=== PATIENT | male | born 1940 | race Caucasian/White ===

== ENCOUNTER 2021-04-23 18:20 | Inpatient (IN) ==
[2021-04-23 18:25] VITALS: BMI 31.8
[2021-04-23] MEDS ORDERED: NS 500 ML IV 500 ML IV ONE ×2 (21:03→21:27)
[2021-04-23 21:22] LABS: BILIRUBIN,URINE NEGATIVE (NEGATIVE); BLOOD/HEMOGLOBIN,URINE 4+ (NEGATIVE); GLUCOSE, URINE NEGATIVE (NEGATIVE); KETONES,URINE 2+ (NEGATIVE); LEUKOCYTE ESTERASE ,URINE 1+ (NEGATIVE); NITRITES,URINE NEGATIVE (NEGATIVE); PROTEIN,URINE 4+ (NEGATIVE); UROBILINOGEN,URINE NORMAL (NORMAL)
--- NOTE | 2021-04-23 21:24 | RAD ---
HISTORYC/O GENERALIZED WEAKNESS IN BILATERAL LEGS X1 WEEK. PT STATES WEAKNESS BECAME WORSE OVER THE LAST PAST TWO DAYS. PT A&O X3, PT ABLE TO SPEAK IN COMPLETE SENTENCES @ THIS TIME.STUDYCHEST, 1 VIEWCOMPARISONNone availableTECHNIQUEChest radiographic imaging, AP portable projection, 1 imageFINDINGSNo cardiomegaly.Airspace disease in the mid to lower right lung field and at the left lung base.No pleural effusion.No pneumothorax.No acute osseous abnormality.IMPRESSIONAirspace disease in the mid to lower right lung field and at the left lung base. Findings could represent in an atypical/viral infectious process or multifocal pneumonia.Electronically signed by: Maikel Wilson (Apr 23, 2021 21:21:09)
[2021-04-23 21:26] LABS: APPEARANCE,URINE CLEAR (CLEAR); COLOR,URINE YELLOW (YELLOW)
[2021-04-23 21:27] LABS: BACTERIA,URINE TRACE /HPF (NEGATIVE); SQUAMOUS EPITHELIAL CELL,UR RARE /HPF (NEGATIVE)
[2021-04-23 21:45] LABS: BASOPHILS % (AUTO) 0.1 % (0.2-1.0); HEMOGLOBIN 13.4 g/dL (13.5-18.0); LYMPHOCYTES # (AUTO) 0.9 X10^3/uL (1.3-2.9); MEAN CORPUSCULAR HEMOGLOBIN 30.9 pg (27.0-34.0); MEAN CORPUSCULAR HGB CONC 34.4 g/dL (33.0-35.0); MEAN CORPUSCULAR VOLUME 89.9 fL (80.0-100.0); MEAN PLATELET VOLUME 7.6 fL (7.4-11.0); MONOCYTES # (AUTO) 0.9 x10^3/uL (0.3-0.8); MONOCYTES % (AUTO) 10.9 % (0.0-13.0); NEUTROPHILS # (AUTO) 6.8 x10^3/uL (2.2-4.8); PLATELET COUNT 146 X10^3/uL (150.0-450.0); RED BLOOD COUNT 4.34 X10^6/uL (4.7-6.0); RED CELL DISTRIBUTION WIDTH 14.7 % (11.6-16.5); WHITE BLOOD COUNT 8.6 X10^3/uL (3.6-10.0)
[2021-04-23 22:04] LABS: ALANINE AMINOTRANSFERASE 35 Units/L (12-78); ALBUMIN 3.4 g/dL (3.4-5.0); ALKALINE PHOSPHATASE 67 Units/L (46-116); ASPARTATE AMINO TRANSFERASE 35 Units/L (15-37); BLOOD UREA NITROGEN 18 mg/dL (7-18); CALCIUM 8.7 mg/dL (8.5-10.1); CARBON DIOXIDE 31.3 mmol/L (21-32); CHLORIDE 95 mmol/L (98-107); CKMB % 0.5 % (<4); COR NA(FOR HYPERGLY) 136 mmol/L (136-145); CREATINE KINASE 414 Units/L (39-308); CREATININE 0.98 mg/dL (0.70-1.30); SODIUM 136 mmol/L (136-145); TOTAL PROTEIN 7.8 g/dL (6.4-8.2); eGFR NON BLACK RACES > 60 (>60)
[2021-04-23] MEDS ORDERED: ROCEPHIN VIAL 1 GRAM 1 G in NS 100 ML IV + SPIKE MINIBAG* 100 ML IV ONE (22:31)
[2021-04-23] MEDS ORDERED: ROCEPHIN 1 GRAM IV PREMIX 0 G/0 ML IV.SOLN. IV ONE (22:33)
[2021-04-23] MEDS ORDERED: ROCEPHIN VIAL 1 GRAM ONE (22:34)
[2021-04-23] MEDS ORDERED: NS 100 ML IV + SPIKE MINIBAG* 100 ML IV ONE (22:35)
--- NOTE | 2021-04-23 22:55 | DR.DIZZY ---
HPI Time seen Time Seen by Provider: 04/23/21 21:02 PCP Primary Care Physician: NFD Complaint Chief Complaint Doctor Comments: 81 y/o male presents feeling ill the past several days, was having generalized leg weakness. +woresened yesterday. Having generalized aches, weakness. Running a fever, with chills. Having congestion. Has a chronic cough, now coughing slightly worse than usual. No shortness of breath. Denies nausea, vomiting, diarrhea. Having darker urine. Chief Complaint:: PT C/O GENERALIZED WEAKNESS IN BILATERAL LEGS X1 WEEK. PT STATES WEAKNESS BECAME WORSE OVER THE LAST PAST TWO DAYS. PT A&O X3, PT ABLE TO SPEAK IN COMPLETE SENTENCES @ THIS TIME. COVID-19 Coronavirus risk:travel/contact w/high risk person: No Has patient experienced Coronavirus symptoms: No Coronavirus symptoms experienced: Fever and Coughing Nurses Notes Reviewed Nurses Notes Review: Yes Source History Provided: Patient and Significant Other Mode of Arrival Mode of Arrival: Wheelchair Timing Onset of Chief Complaint: 04/16/21 Context Stroke Symptoms: None PMH PMH Past Medical History: Yes Past Medical History: COPD Past Surgical History: Yes Surgical History: Other Family History History of Family Medical Conditions: Yes Family Medical History: Diabetes Mellitus Social History Do you use any recreational Drugs:: No Travel Risk Coronavirus risk:travel/contact w/high risk person: No Has patient experienced Coronavirus symptoms: No Infectious screening Have you traveled outside the country in the last 6 months?: No Isolation: Standard ROS Review of Systems Constitutional: Chills, Fever, Malaise and Weakness Eyes: No Symptoms Reported ENTM: Nose Congestion Respiratoy: Non-Productive Cough Cardiovascular: No Symptoms Reported Gastrointestinal/Abdominal: No Symptoms Reported Genitourinary: Other (darker urine); negative Dysuria and Frequency Neurological: Weakness Musculoskeletal: Muscle Pain Integumentary: No Symptoms Reported Hematologic/Lymphatic: No Symptoms Reported Psychiatric: No Symptoms Reported All Other Systems: Reviewed and Negative PE Vital Signs Vitals: Temperature 100.7 F Pulse Rate [Apical] 74 Pulse Rate 75 Respiratory Rate 20 Blood Pressure [Left Arm] 143/68 Blood Pressure 143/68 O2 Sat by Pulse Oximetry 97 General Limitations: No Limitations General Appearance: Alert, In No Apparent Distress and Other (appears weak) Head Head Exam: Normal Inspection Eyes Eye exam: Normal Appearance, PERRL and EOMI ENT ENT Exam: Normal Exam and Mucous Membranes Moist Neck Neck Exam: Normal Inspection Chest Chest Inspection: Normal Inspection Respiratory Respiratory Exam: Bilateral: Rales and Bilateral: Rhonchi Cardiovascular Cardiovascular Exam: Regular Rate, Normal Rhythm and Normal Heart Sounds Abdominal Exam Abdominal Exam: Normal Inspection, Normal Bowel Sounds and Soft; negative Tenderness Extremeties Extremities Exam: Normal Inspection and Full ROM; negative Tenderness Back Back Exam: Normal Inspection Neurologic Neurological Exam: Alert, Oriented X3 and CN II-XII Intact; negative Motor Sensory Deficit Psychiatric Psychiatric Exam: Normal Affect Skin Skin Exam: Warm and Dry MDM Differential Diagnosis Differential Diagnosis: Dehydration and Electrolyte disorder Differential Diagnosis Comment: Pneumonia, covid, flu COURSE Treatment Treatment: 81 y/o male ill past week with weakness, worsened yesterday with URI symptoms. Covid + here. CXR with bilateral infiltrate, c/w covid infection, but a little more consolidated on the R side. Labs over all acceptable. Does have ketones in the urine c/w dehydration. Given IV fluids. Attempted to give IV rocephin for antibiotic coverage (has been ill past week, could be developing secondary bacterial infection on top of Covid). Pt declined antibiotic, wants treatment with Ivermectin. Pt is unvaccinated. Presented pt to covering hospitalist, Dr Ortega. Accepts the admission. ROR Labs Reviewed Laboratory Results Reviewed?: Yes Result Diagrams: 04/23/21 21:22 04/23/21 21: Laboratory: WBC 8.6 X10^3/uL (3.6-10.0) 04/23/21 21: RBC 4.34 X10^6/uL (4.7-6.0) L 04/23/21 21: Hgb 13.4 g/dL (13.5-18.0) L 04/23/21 21:22 Hct 39.0 % (42.0-54.0) L 04/23/21 21: MCV 89.9 fL (80.0-100.0) 04/23/21 21: MCH 30.9 pg (27.0-34.0) 04/23/21 21: MCHC 34.4 g/dL (33.0-35.0) 04/23/21 21: RDW 14.7 % (11.6-16.5) 04/23/21 21: Plt Count 146 X10^3/uL (150.0-450.0) L 04/23/21 21:22 MPV 7.6 fL (7.4-11.0) 04/23/21 21: Neut % (Auto) 79.0 % (42.0-75.0) H 04/23/21 21:22 Lymph % (Auto) 10.0 % (21.0-51.0) L 04/23/21 21:22 [place] % (Auto) 10.9 % (0.0-13.0) 04/23/21 21:22 Eos % (Auto) 0.0 % (0.9-2.9) L 04/23/21 21:22 Baso % (Auto) 0.1 % (0.2-1.0) L 04/23/21 21:22 Neut # (Auto) 6.8 x10^3/uL (2.2-4.8) H 04/23/21 21:22 Lymph # (Auto) 0.9 X10^3/uL (1.3-2.9) L 04/23/21 21:22 [place] # (Auto) 0.9 x10^3/uL (0.3-0.8) H 04/23/21 21:22 Eos # (Auto) 0.0 x10^3/uL (0.0-0.2) 04/23/21 21:22 Baso # (Auto) 0.0 X10^3/uL (0.0-0.1) 04/23/21 21: Absolute Nucleated RBC 0.0 /100WBC 04/23/21 21:22 Sodium 136 mmol/L (136-145) 04/23/21 21:22 Corrected Sodium 136 mmol/L (136-145) 04/23/21 21:22 Potassium 3.6 mmol/L (3.5-5.1) 04/23/21 21: Chloride 95 mmol/L (98-107) L 04/23/21 21: Carbon Dioxide 31.3 mmol/L (21-32) 04/23/21 21:22 BUN 18 mg/dL (7-18) 04/23/21 21:22 Creatinine 0.98 mg/dL (0.70-1.30) 04/23/21 21:22 Est GFR (MDRD) Af Amer > 60 (>60) 04/23/21 21: Est GFR (MDRD) Non-Af > 60 (>60) 04/23/21 21: Glucose 120 mg/dL (65-99) H 04/23/21 21: Lactic Acid 1.0 mmol/L (0.4-2.0) 04/23/21 21: Calcium 8.7 mg/dL (8.5-10.1) 04/23/21 21: Corrected Calcium TNP 04/23/21 21: Total Bilirubin 0.70 mg/dL (0.2-1.0) 04/23/21 21: AST 35 Units/L (15-37) 04/23/21: ALT 35 Units/L (12-78) 04/23/21 21: Alkaline Phosphatase 67 Units/L (46-116) 04/23/21 21: Creatine Kinase 414 Units/L (39-308) H 04/23/21 21: CK-MB (CK-2) 2.0 ng/mL (0-4.0) 04/23/21 21: CK/CKMB % Calc 0.5 % (<4) 04/23/21: Troponin I 0.05 ng/mL (0-1.5) 04/23/21: Total Protein 7.8 g/dL (6.4-8.2) 04/23/21 21: Albumin 3.4 g/dL (3.4-5.0) 04/23/21: Globulin 4.4 g/dL (2.5-4.5) 04/23/21 21: Albumin/Globulin Ratio 0.8 Ratio (1.1-2.1) L 04/23/21 21: Specimen Type Clean catch urine 04/23/21 20:36 Urine Color Yellow (YELLOW) 04/23/21 20:36 Urine Appearance Clear (CLEAR) 04/23/21 20:36 Urine pH 5.0 (5.0 - 8.0) 04/23/21 20:36 Ur Specific [place] 1.020 (1.000-1.030) 04/23/21 20:36 Urine Protein 4+ (NEGATIVE) 04/23/21 20:36 Urine Glucose (UA) Negative (NEGATIVE) 04/23/21 20:36 Urine Ketones 2+ (NEGATIVE) 04/23/21 20:36 Urine Occult Blood 4+ (NEGATIVE) 04/23/21 20:36 Urine Nitrite Negative (NEGATIVE) 04/23/21 20:36 Urine Bilirubin Negative (NEGATIVE) 04/23/21 20:36 Urine Urobilinogen Normal (NORMAL) 04/23/21 20:36 Ur Leukocyte Esterase 1+ (NEGATIVE) 04/23/21 20:36 Urine RBC 5-10 /HPF (0-3) A 04/23/21 20:36 Urine WBC 3-5 /HPF (0-5) 04/23/21 20:36 Ur Squamous Epith Cells Rare /HPF (NEGATIVE) 04/23/21 20:36 Urine Bacteria Trace /HPF (NEGATIVE) 04/23/21 20:36 Urine Mucus Rare /HPF (NEGATIVE) 04/23/21 20:36 Ur Culture Indicated? No/not indicated 04/23/21 20:36 SARS-CoV-2 (PCR) Positive (NEGATIVE) A 04/23/21 21:40 Influenza Type A (PCR) Negative (NEGATIVE) 04/23/21 21:40 Influenza Type B (PCR) Negative (NEGATIVE) 04/23/21 21:40 RSV (PCR) Negative (NEGATIVE) 04/23/21 21:40 Other Results Comments: Covid +, labs dotherwise unremarkable XRAY XRAY Interpreted by: Both X-ray Results: + bilateral opacifications Opioid Opioid Risk Tool Age (Hill box if 16-45): No History of Preadolescent Sexual Abuse: No Total: 0 Total Score Risk Category: Low Risk Copyright: Ann predicting aberrant behaviors Diagnosis Discharge Problem: Pneumonia due to COVID-19 virus, Dehydration
[2021-04-24] MEDS ORDERED: PHARMACY CONSULT - LOVENOX XX SCH (00:32)
[2021-04-24] MEDS ORDERED: IVERMECTIN PO SCH (00:32)
[2021-04-24] MEDS ORDERED: PERIACTIN TAB 4 MG PO PRN (00:32)
[2021-04-24] MEDS ORDERED: PHARMACY CONSULT - IVERMECTIN XX SCH (00:32)
[2021-04-24] MEDS ORDERED: NS 100 ML IV 100 ML ONE ×3 (00:39→09:00)
[2021-04-24] MEDS ORDERED: REMDESIVIR IV ONE (00:39)
[2021-04-24] MEDS: REMDESIVIR 200 MG in NS 250 ML IV 250 ML IV ONE ×2 (00:46→00:48)
[2021-04-24] MEDS ORDERED: NS 1,000 ML IV 1,000 ML ONE (00:49)
[2021-04-24] MEDS ORDERED: NS 250 ML IV 250 ML IV ONE (00:49)
[2021-04-24] MEDS: NS 1,000 ML IV 1,000 ML IV SCH ×2 (00:50→13:33)
[2021-04-24] MEDS: ROCEPHIN VIAL 1 GRAM 1 G in NS 100 ML IV + SPIKE MINIBAG* 100 ML IV SCH ×2 (00:56→08:28)
[2021-04-24] MEDS ORDERED: ASCORBIC ACID INJ MULTI-DOSE VIAL IV ONE (02:20)
[2021-04-24] MEDS: ASCORBIC ACID INJ MULTI-DOSE VIAL 1,500 MG in NS 100 ML IV 100 ML IV SCH ×4 (02:27→20:42)
[2021-04-24] MEDS ORDERED: TYLENOL 325 MG TAB PO PRN (04:18)
[2021-04-24] MEDS ORDERED: TYLENOL 325 MG TAB PO ONE (04:34)
[2021-04-24] MEDS ORDERED: SOLU-Medrol 40 MG VIAL ONE (05:20)
[2021-04-24] MEDS: SOLU-Medrol 40 MG VIAL IVP SCH ×3 (05:21→21:29)
[2021-04-24 06:33] LABS: BASOPHILS # (AUTO) 0.2 X10^3/uL (0.0-0.1); BASOPHILS % (AUTO) 2.2 % (0.2-1.0); EOSINOPHILS % (AUTO) 0.1 % (0.9-2.9); HEMATOCRIT 35.6 % (42.0-54.0); HEMOGLOBIN 12.1 g/dL (13.5-18.0); LYMPHOCYTES # (AUTO) 1.2 X10^3/uL (1.3-2.9); MEAN CORPUSCULAR HEMOGLOBIN 30.6 pg (27.0-34.0); MEAN CORPUSCULAR HGB CONC 34.1 g/dL (33.0-35.0); MEAN CORPUSCULAR VOLUME 89.8 fL (80.0-100.0); MEAN PLATELET VOLUME 7.8 fL (7.4-11.0); MONOCYTES # (AUTO) 0.6 x10^3/uL (0.3-0.8); MONOCYTES % (AUTO) 8.2 % (0.0-13.0); NEUTROPHILS % (AUTO) 72.5 % (42.0-75.0); PLATELET COUNT 125 X10^3/uL (150.0-450.0); RED BLOOD COUNT 3.96 X10^6/uL (4.7-6.0); WHITE BLOOD COUNT 6.9 X10^3/uL (3.6-10.0)
[2021-04-24 07:20] LABS: ALANINE AMINOTRANSFERASE 33 Units/L (12-78); ALBUMIN 2.7 g/dL (3.4-5.0); ALKALINE PHOSPHATASE 56 Units/L (46-116); ASPARTATE AMINO TRANSFERASE 43 Units/L (15-37); BLOOD UREA NITROGEN 14 mg/dL (7-18); CALCIUM 7.9 mg/dL (8.5-10.1); CHLORIDE 100 mmol/L (98-107); COR CA(FOR HYPOALB) 8.9 mg/dL (8.5-10.1); CREATININE 0.75 mg/dL (0.70-1.30); SODIUM 138 mmol/L (136-145); TOTAL PROTEIN 6.5 g/dL (6.4-8.2); eGFR NON BLACK RACES > 60 (>60)
[2021-04-24] MEDS ORDERED: REMDESIVIR 200 MG in NS 250 ML IV 250 ML IV NR (08:00)
[2021-04-24] MEDS ORDERED: PROTONIX TAB 40 MG PO ONE (08:15)
[2021-04-24] MEDS ORDERED: ZINC SULFATE ONE (08:16)
[2021-04-24] MEDS ORDERED: IVERMECTIN ONE (08:16)
[2021-04-24] MEDS ORDERED: LOVENOX INJ 100 MG SYR SC ONE (08:16)
[2021-04-24] MEDS ORDERED: LIPITOR TAB 80 MG ONE (08:16)
[2021-04-24] MEDS ORDERED: PEPCID TAB 40 MG ONE (08:16)
[2021-04-24] MEDS ORDERED: CYTOTEC ONE ×2 (08:16→13:09)
[2021-04-24] MEDS ORDERED: THIAMINE HCL INJ ONE (08:16)
[2021-04-24] MEDS ORDERED: ROCEPHIN VIAL 1 GRAM ONE (08:17)
[2021-04-24] MEDS ORDERED: NS 100 ML IV + SPIKE MINIBAG* 100 ML IV ONE (08:17)
[2021-04-24] MEDS ORDERED: PROTONIX INJ 40 MG VIAL ONE (08:21)
[2021-04-24] MEDS ORDERED: VITAMIN D3 125 mcg (5,000 UNITS) ONE (08:22)
[2021-04-24] MEDS: CYTOTEC PO SCH ×4 (08:24→20:42)
[2021-04-24] MEDS: ZINC SULFATE PO SCH ×2 (08:25→20:23)
[2021-04-24] MEDS: IVERMECTIN PO SCH (08:25)
[2021-04-24] MEDS: THIAMINE HCL INJ IVP SCH ×2 (08:25→20:24)
[2021-04-24] MEDS: LIPITOR TAB 80 MG PO SCH (08:25)
[2021-04-24] MEDS: PROTONIX INJ 40 MG VIAL IVP SCH ×2 (08:25→20:22)
[2021-04-24] MEDS: PEPCID TAB 40 MG PO SCH ×2 (08:26→20:24)
[2021-04-24] MEDS: LOVENOX INJ 100 MG SYR SC SCH ×2 (08:27→20:24)
[2021-04-24] MEDS ORDERED: VITAMIN A PO SCH (09:00)
[2021-04-24] MEDS ORDERED: VITAMIN D (1.25MG) PO SCH (09:00)
[2021-04-24] MEDS: BROVANA IN SCH ×2 (09:15→20:10)
[2021-04-24] MEDS: PULMICORT NEB TX 0.5 MG NEB SCH ×2 (09:15→20:10)
[2021-04-24] MEDS ORDERED: KLOR-CON PO PRN (10:51)
[2021-04-24] MEDS ORDERED: POTASSIUM CHLORIDE LIQ 20 MEQ UDC PO PRN (10:51)
[2021-04-24] MEDS ORDERED: POTASSIUM CHL 40 MEQ/NS 0.45% 500 ML IV PRN (10:51)
[2021-04-24] MEDS ORDERED: POTASSIUM CHL 60 MEQ/NS 0.45% 500 ML IV PRN (10:51)
[2021-04-24] MEDS ORDERED: MICRO K EXTEN CAP 10 MEQ PO PRN (10:51)
[2021-04-24] MEDS ORDERED: K-DUR TAB 20 MEQ PO ONE (11:21)
[2021-04-24] MEDS: K-DUR TAB 20 MEQ PO PRN ×2 (11:54→20:22)
[2021-04-24] MEDS ORDERED: MAGNESIUM SULFATE 1 GRAM/100 mL PREMIX 1 G/100 ML BAG IV ONE (12:44)
[2021-04-24] MEDS: MAGNESIUM SULFATE 1 GRAM/100 mL PREMIX 1 G/100 ML BAG IV PRN ×2 (12:46→23:23)
[2021-04-24] MEDS ORDERED: MELATONIN ONE (19:08)
[2021-04-24] MEDS: MELATONIN PO SCH (20:23)
[2021-04-25] MEDS: ASCORBIC ACID INJ MULTI-DOSE VIAL 1,500 MG in NS 100 ML IV 100 ML IV SCH ×4 (02:04→20:13)
[2021-04-25] MEDS: NS 1,000 ML IV 1,000 ML IV SCH ×2 (04:57→15:01)
[2021-04-25] MEDS: SOLU-Medrol 40 MG VIAL IVP SCH (05:05)
[2021-04-25 05:45] LABS: BASOPHILS % (AUTO) 0.1 % (0.2-1.0); HEMATOCRIT 33.3 % (42.0-54.0); HEMOGLOBIN 11.5 g/dL (13.5-18.0); LYMPHOCYTES # (AUTO) 0.5 X10^3/uL (1.3-2.9); LYMPHOCYTES % (AUTO) 9.6 % (21.0-51.0); MEAN CORPUSCULAR HEMOGLOBIN 30.8 pg (27.0-34.0); MEAN CORPUSCULAR HGB CONC 34.5 g/dL (33.0-35.0); MEAN CORPUSCULAR VOLUME 89.3 fL (80.0-100.0); MEAN PLATELET VOLUME 8.3 fL (7.4-11.0); MONOCYTES # (AUTO) 0.3 x10^3/uL (0.3-0.8); MONOCYTES % (AUTO) 4.9 % (0.0-13.0); NEUTROPHILS # (AUTO) 4.7 x10^3/uL (2.2-4.8); NEUTROPHILS % (AUTO) 85.4 % (42.0-75.0); PLATELET COUNT 140 X10^3/uL (150.0-450.0); RED BLOOD COUNT 3.73 X10^6/uL (4.7-6.0); WHITE BLOOD COUNT 5.5 X10^3/uL (3.6-10.0)
[2021-04-25 05:57] LABS: ALANINE AMINOTRANSFERASE 39 Units/L (12-78); ALBUMIN 2.4 g/dL (3.4-5.0); ALKALINE PHOSPHATASE 57 Units/L (46-116); ASPARTATE AMINO TRANSFERASE 43 Units/L (15-37); BLOOD UREA NITROGEN 16 mg/dL (7-18); CARBON DIOXIDE 31.2 mmol/L (21-32); CHLORIDE 105 mmol/L (98-107); COR CA(FOR HYPOALB) 9.3 mg/dL (8.5-10.1); COR NA(FOR HYPERGLY) 139 mmol/L (136-145); CREATININE 0.69 mg/dL (0.70-1.30); MAGNESIUM 2.2 mg/dL (1.7-2.9); SODIUM 138 mmol/L (136-145); TOTAL PROTEIN 6.3 g/dL (6.4-8.2); eGFR NON BLACK RACES > 60 (>60)
[2021-04-25] MEDS: BROVANA IN SCH ×2 (08:38→20:49)
[2021-04-25] MEDS: PULMICORT NEB TX 0.5 MG NEB SCH ×2 (08:38→20:49)
[2021-04-25] MEDS: CYTOTEC PO SCH ×4 (09:26→20:12)
[2021-04-25] MEDS: LOVENOX INJ 100 MG SYR SC SCH ×2 (09:29→20:12)
[2021-04-25] MEDS: LIPITOR TAB 80 MG PO SCH (09:29)
[2021-04-25] MEDS: IVERMECTIN PO SCH (09:29)
[2021-04-25] MEDS: PEPCID TAB 40 MG PO SCH ×2 (09:29→20:13)
[2021-04-25] MEDS: PROTONIX INJ 40 MG VIAL IVP SCH ×2 (09:29→20:13)
[2021-04-25] MEDS: VITAMIN A PO SCH (09:30)
[2021-04-25] MEDS: ROCEPHIN VIAL 1 GRAM 1 G in NS 100 ML IV + SPIKE MINIBAG* 100 ML IV SCH (09:30)
[2021-04-25] MEDS: REMDESIVIR 100 MG in NS 100 ML IV + SPIKE MINIBAG* 120 ML IV SCH (09:30)
[2021-04-25] MEDS: THIAMINE HCL INJ IVP SCH ×2 (09:30→20:14)
[2021-04-25] MEDS: VITAMIN D3 125 mcg (5,000 UNITS) PO SCH (09:31)
[2021-04-25] MEDS: ZINC SULFATE PO SCH ×2 (09:31→20:14)
[2021-04-25] MEDS: SOLU-Medrol 125 MG VIAL IVP SCH ×3 (10:29→21:04)
[2021-04-25] MEDS: BUTT CREAM (COMPOUND) TOP PRN (11:28)
[2021-04-25] MEDS: TESSALON PERLES PO PRN (20:13)
[2021-04-25] MEDS: MELATONIN PO SCH (20:14)
[2021-04-26] MEDS: ASCORBIC ACID INJ MULTI-DOSE VIAL 1,500 MG in NS 100 ML IV 100 ML IV SCH ×3 (03:31→14:02)
[2021-04-26] MEDS: NS 1,000 ML IV 1,000 ML IV SCH ×2 (05:05→17:31)
[2021-04-26] MEDS: SOLU-Medrol 125 MG VIAL IVP SCH ×3 (05:05→21:05)
[2021-04-26 05:30] LABS: HEMOGLOBIN 11.5 g/dL (13.5-18.0); MEAN PLATELET VOLUME 8.7 fL (7.4-11.0)
[2021-04-26 05:34] LABS: BASOPHILS % (AUTO) 0.1 % (0.2-1.0); HEMATOCRIT 33.4 % (42.0-54.0); LYMPHOCYTES # (AUTO) 0.4 X10^3/uL (1.3-2.9); LYMPHOCYTES % (AUTO) 5.3 % (21.0-51.0); MEAN CORPUSCULAR HEMOGLOBIN 30.7 pg (27.0-34.0); MEAN CORPUSCULAR HGB CONC 34.3 g/dL (33.0-35.0); MEAN CORPUSCULAR VOLUME 89.5 fL (80.0-100.0); MONOCYTES # (AUTO) 0.4 x10^3/uL (0.3-0.8); MONOCYTES % (AUTO) 5.1 % (0.0-13.0); NEUTROPHILS # (AUTO) 6.9 x10^3/uL (2.2-4.8); NEUTROPHILS % (AUTO) 89.5 % (42.0-75.0); PLATELET COUNT 164 X10^3/uL (150.0-450.0); RED BLOOD COUNT 3.74 X10^6/uL (4.7-6.0); RED CELL DISTRIBUTION WIDTH 15.2 % (11.6-16.5); WHITE BLOOD COUNT 7.7 X10^3/uL (3.6-10.0)
[2021-04-26 05:37] LABS: ALANINE AMINOTRANSFERASE 50 Units/L (12-78); ALBUMIN 2.3 g/dL (3.4-5.0); ALKALINE PHOSPHATASE 53 Units/L (46-116); ASPARTATE AMINO TRANSFERASE 45 Units/L (15-37); BLOOD UREA NITROGEN 19 mg/dL (7-18); CALCIUM 7.9 mg/dL (8.5-10.1); CARBON DIOXIDE 29.7 mmol/L (21-32); CHLORIDE 107 mmol/L (98-107); COR CA(FOR HYPOALB) 9.3 mg/dL (8.5-10.1); COR NA(FOR HYPERGLY) 141 mmol/L (136-145); CREATININE 0.73 mg/dL (0.70-1.30); SODIUM 140 mmol/L (136-145); TOTAL PROTEIN 5.9 g/dL (6.4-8.2); eGFR NON BLACK RACES > 60 (>60)
[2021-04-26] MEDS: LOVENOX INJ 100 MG SYR SC SCH ×2 (08:48→20:02)
[2021-04-26] MEDS: CYTOTEC PO SCH ×4 (08:48→20:03)
[2021-04-26] MEDS: LIPITOR TAB 80 MG PO SCH (08:48)
[2021-04-26] MEDS: IVERMECTIN PO SCH (08:48)
[2021-04-26] MEDS: PEPCID TAB 40 MG PO SCH ×2 (08:49→20:03)
[2021-04-26] MEDS: PULMICORT NEB TX 0.5 MG NEB SCH ×2 (08:50→20:30)
[2021-04-26] MEDS: PROTONIX INJ 40 MG VIAL IVP SCH ×2 (08:50→20:03)
[2021-04-26] MEDS: REMDESIVIR 100 MG in NS 100 ML IV + SPIKE MINIBAG* 120 ML IV SCH (08:50)
[2021-04-26] MEDS: ROCEPHIN VIAL 1 GRAM 1 G in NS 100 ML IV + SPIKE MINIBAG* 100 ML IV SCH (08:50)
[2021-04-26] MEDS: VITAMIN A PO SCH (08:50)
[2021-04-26] MEDS: ZINC SULFATE PO SCH ×2 (08:50→20:03)
[2021-04-26] MEDS: THIAMINE HCL INJ IVP SCH ×2 (08:50→20:04)
[2021-04-26] MEDS: VITAMIN D3 125 mcg (5,000 UNITS) PO SCH (08:50)
[2021-04-26] MEDS: BROVANA IN SCH ×2 (08:50→20:30)
[2021-04-26] MEDS: BUTT CREAM (COMPOUND) TOP PRN (11:14)
[2021-04-26] MEDS: K-DUR TAB 20 MEQ PO PRN (11:14)
[2021-04-26] MEDS: ASCORBIC ACID INJ MULTI-DOSE VIAL 1,500 MG in NS 50 ML IV 50 ML IV SCH ×2 (15:00→20:01)
[2021-04-26] MEDS: TESSALON PERLES PO PRN (20:03)
[2021-04-26] MEDS: MELATONIN PO SCH (20:03)
[2021-04-27] MEDS: ASCORBIC ACID INJ MULTI-DOSE VIAL 1,500 MG in NS 50 ML IV 50 ML IV SCH ×4 (03:14→21:43)
[2021-04-27] MEDS: NS 1,000 ML IV 1,000 ML IV SCH ×4 (05:03→22:44)
[2021-04-27] MEDS: SOLU-Medrol 125 MG VIAL IVP SCH ×3 (05:03→21:47)
[2021-04-27 05:24] LABS: BASOPHILS % (AUTO) 0 % (0.2-1.0); HEMATOCRIT 34.1 % (42.0-54.0); HEMOGLOBIN 11.5 g/dL (13.5-18.0); LYMPHOCYTES # (AUTO) 0.3 X10^3/uL (1.3-2.9); LYMPHOCYTES % (AUTO) 6.1 % (21.0-51.0); MEAN CORPUSCULAR HEMOGLOBIN 30.3 pg (27.0-34.0); MEAN CORPUSCULAR HGB CONC 33.7 g/dL (33.0-35.0); MEAN CORPUSCULAR VOLUME 89.8 fL (80.0-100.0); MEAN PLATELET VOLUME 8.6 fL (7.4-11.0); MONOCYTES # (AUTO) 0.4 x10^3/uL (0.3-0.8); MONOCYTES % (AUTO) 8.2 % (0.0-13.0); NEUTROPHILS # (AUTO) 4.2 x10^3/uL (2.2-4.8); NEUTROPHILS % (AUTO) 85.7 % (42.0-75.0); PLATELET COUNT 171 X10^3/uL (150.0-450.0); RED CELL DISTRIBUTION WIDTH 14.9 % (11.6-16.5); WHITE BLOOD COUNT 4.9 X10^3/uL (3.6-10.0)
[2021-04-27 05:47] LABS: ALANINE AMINOTRANSFERASE 79 Units/L (12-78); ALBUMIN 2.2 g/dL (3.4-5.0); ALKALINE PHOSPHATASE 53 Units/L (46-116); ASPARTATE AMINO TRANSFERASE 51 Units/L (15-37); BLOOD UREA NITROGEN 21 mg/dL (7-18); CARBON DIOXIDE 30.5 mmol/L (21-32); CHLORIDE 107 mmol/L (98-107); COR CA(FOR HYPOALB) 9.4 mg/dL (8.5-10.1); COR NA(FOR HYPERGLY) 145 mmol/L (136-145); CREATININE 0.79 mg/dL (0.70-1.30); SODIUM 143 mmol/L (136-145); TOTAL PROTEIN 5.8 g/dL (6.4-8.2); eGFR NON BLACK RACES > 60 (>60)
[2021-04-27] MEDS: CYTOTEC PO SCH ×4 (09:04→21:45)
[2021-04-27] MEDS: LIPITOR TAB 80 MG PO SCH (09:05)
[2021-04-27] MEDS: IVERMECTIN PO SCH (09:05)
[2021-04-27] MEDS: PROTONIX INJ 40 MG VIAL IVP SCH ×2 (09:06→21:46)
[2021-04-27] MEDS: REMDESIVIR 100 MG in NS 100 ML IV + SPIKE MINIBAG* 120 ML IV SCH (09:06)
[2021-04-27] MEDS: PEPCID TAB 40 MG PO SCH ×2 (09:06→21:46)
[2021-04-27] MEDS: VITAMIN A PO SCH (09:07)
[2021-04-27] MEDS: THIAMINE HCL INJ IVP SCH ×2 (09:07→21:46)
[2021-04-27] MEDS: ROCEPHIN VIAL 1 GRAM 1 G in NS 100 ML IV + SPIKE MINIBAG* 100 ML IV SCH (09:07)
[2021-04-27] MEDS: ZINC SULFATE PO SCH ×2 (09:08→21:47)
[2021-04-27] MEDS: VITAMIN D3 125 mcg (5,000 UNITS) PO SCH (09:08)
[2021-04-27] MEDS: BROVANA IN SCH ×2 (09:20→20:46)
[2021-04-27] MEDS: PULMICORT NEB TX 0.5 MG NEB SCH ×2 (09:20→20:46)
[2021-04-27] MEDS: LOVENOX INJ 100 MG SYR SC SCH ×2 (11:05→21:45)
[2021-04-27] MEDS: MELATONIN PO SCH (21:46)
[2021-04-28] MEDS: ASCORBIC ACID INJ MULTI-DOSE VIAL 1,500 MG in NS 50 ML IV 50 ML IV SCH ×4 (04:00→21:11)
[2021-04-28 05:29] LABS: ALANINE AMINOTRANSFERASE 84 Units/L (12-78); ALBUMIN 2.2 g/dL (3.4-5.0); ALKALINE PHOSPHATASE 49 Units/L (46-116); ASPARTATE AMINO TRANSFERASE 39 Units/L (15-37); BLOOD UREA NITROGEN 18 mg/dL (7-18); CALCIUM 7.8 mg/dL (8.5-10.1); CARBON DIOXIDE 33.3 mmol/L (21-32); CHLORIDE 107 mmol/L (98-107); COR CA(FOR HYPOALB) 9.2 mg/dL (8.5-10.1); COR NA(FOR HYPERGLY) 145 mmol/L (136-145); CREATININE 0.85 mg/dL (0.70-1.30); SODIUM 143 mmol/L (136-145); TOTAL PROTEIN 5.5 g/dL (6.4-8.2); eGFR NON BLACK RACES > 60 (>60)
[2021-04-28 05:37] LABS: BASOPHILS % (AUTO) 0.2 % (0.2-1.0); HEMATOCRIT 33.4 % (42.0-54.0); HEMOGLOBIN 11.4 g/dL (13.5-18.0); LYMPHOCYTES # (AUTO) 0.3 X10^3/uL (1.3-2.9); LYMPHOCYTES % (AUTO) 7.7 % (21.0-51.0); MEAN CORPUSCULAR HEMOGLOBIN 30.6 pg (27.0-34.0); MEAN CORPUSCULAR HGB CONC 34.2 g/dL (33.0-35.0); MEAN CORPUSCULAR VOLUME 89.4 fL (80.0-100.0); MEAN PLATELET VOLUME 8.4 fL (7.4-11.0); MONOCYTES # (AUTO) 0.4 x10^3/uL (0.3-0.8); MONOCYTES % (AUTO) 9.8 % (0.0-13.0); NEUTROPHILS # (AUTO) 3.3 x10^3/uL (2.2-4.8); NEUTROPHILS % (AUTO) 82.3 % (42.0-75.0); PLATELET COUNT 179 X10^3/uL (150.0-450.0); RED BLOOD COUNT 3.73 X10^6/uL (4.7-6.0); RED CELL DISTRIBUTION WIDTH 14.8 % (11.6-16.5)
[2021-04-28 06:09] LABS: PLATELET MORPHOLOGY COMMENT NORMAL (NORMAL)
[2021-04-28] MEDS: SOLU-Medrol 125 MG VIAL IVP SCH ×3 (06:30→21:15)
[2021-04-28] MEDS: CYTOTEC PO SCH ×4 (09:02→21:12)
[2021-04-28] MEDS: NS 1,000 ML IV 1,000 ML IV SCH ×2 (09:02→21:17)
[2021-04-28] MEDS: LIPITOR TAB 80 MG PO SCH (09:02)
[2021-04-28] MEDS: IVERMECTIN PO SCH (09:02)
[2021-04-28] MEDS: LOVENOX INJ 100 MG SYR SC SCH ×2 (09:02→21:12)
[2021-04-28] MEDS: THIAMINE HCL INJ IVP SCH ×2 (09:03→21:14)
[2021-04-28] MEDS: REMDESIVIR 100 MG in NS 100 ML IV + SPIKE MINIBAG* 120 ML IV SCH (09:03)
[2021-04-28] MEDS: PEPCID TAB 40 MG PO SCH ×2 (09:03→21:14)
[2021-04-28] MEDS: PROTONIX INJ 40 MG VIAL IVP SCH ×2 (09:03→21:14)
[2021-04-28] MEDS: ROCEPHIN VIAL 1 GRAM 1 G in NS 100 ML IV + SPIKE MINIBAG* 100 ML IV SCH (09:03)
[2021-04-28] MEDS: VITAMIN A PO SCH (09:04)
[2021-04-28] MEDS: VITAMIN D3 125 mcg (5,000 UNITS) PO SCH (09:04)
[2021-04-28] MEDS: ZINC SULFATE PO SCH ×2 (09:04→21:15)
[2021-04-28] MEDS: K-DUR TAB 20 MEQ PO PRN (09:43)
[2021-04-28] MEDS: BROVANA IN SCH ×2 (09:45→20:44)
[2021-04-28] MEDS: PULMICORT NEB TX 0.5 MG NEB SCH ×2 (09:45→20:44)
[2021-04-28] MEDS: BUTT CREAM (COMPOUND) TOP PRN (10:00)
[2021-04-28] MEDS: MELATONIN PO SCH (21:14)
[2021-04-29] MEDS: NS 1,000 ML IV 1,000 ML IV SCH ×3 (01:00→19:05)
[2021-04-29] MEDS: ASCORBIC ACID INJ MULTI-DOSE VIAL 1,500 MG in NS 50 ML IV 50 ML IV SCH ×4 (02:30→21:00)
[2021-04-29 05:06] LABS: BASOPHILS % (AUTO) 0.1 % (0.2-1.0); HEMATOCRIT 35.5 % (42.0-54.0); HEMOGLOBIN 12.1 g/dL (13.5-18.0); LYMPHOCYTES # (AUTO) 0.3 X10^3/uL (1.3-2.9); LYMPHOCYTES % (AUTO) 6.2 % (21.0-51.0); MEAN CORPUSCULAR HEMOGLOBIN 30.5 pg (27.0-34.0); MEAN CORPUSCULAR VOLUME 89.8 fL (80.0-100.0); MEAN PLATELET VOLUME 8.6 fL (7.4-11.0); MONOCYTES # (AUTO) 0.4 x10^3/uL (0.3-0.8); NEUTROPHILS # (AUTO) 4.6 x10^3/uL (2.2-4.8); NEUTROPHILS % (AUTO) 85.7 % (42.0-75.0); PLATELET COUNT 189 X10^3/uL (150.0-450.0); RED BLOOD COUNT 3.96 X10^6/uL (4.7-6.0); RED CELL DISTRIBUTION WIDTH 14.8 % (11.6-16.5); WHITE BLOOD COUNT 5.3 X10^3/uL (3.6-10.0)
[2021-04-29 05:27] LABS: ALANINE AMINOTRANSFERASE 80 Units/L (12-78); ALBUMIN 2.1 g/dL (3.4-5.0); ALKALINE PHOSPHATASE 49 Units/L (46-116); ASPARTATE AMINO TRANSFERASE 31 Units/L (15-37); BLOOD UREA NITROGEN 18 mg/dL (7-18); CALCIUM 7.6 mg/dL (8.5-10.1); CARBON DIOXIDE 34.7 mmol/L (21-32); CHLORIDE 104 mmol/L (98-107); COR CA(FOR HYPOALB) 9.1 mg/dL (8.5-10.1); COR NA(FOR HYPERGLY) 146 mmol/L (136-145); CREATININE 0.77 mg/dL (0.70-1.30); SODIUM 144 mmol/L (136-145); TOTAL PROTEIN 5.5 g/dL (6.4-8.2); eGFR NON BLACK RACES > 60 (>60)
[2021-04-29] MEDS: SOLU-Medrol 125 MG VIAL IVP SCH (05:45)
[2021-04-29 05:56] LABS: PLATELET MORPHOLOGY COMMENT NORMAL (NORMAL)
[2021-04-29] MEDS: BUTT CREAM (COMPOUND) TOP PRN (07:55)
[2021-04-29] MEDS: CYTOTEC PO SCH ×4 (08:43→21:24)
[2021-04-29] MEDS: PROTONIX INJ 40 MG VIAL IVP SCH ×2 (08:44→21:00)
[2021-04-29] MEDS: PEPCID TAB 40 MG PO SCH ×2 (08:44→21:00)
[2021-04-29] MEDS: LIPITOR TAB 80 MG PO SCH (08:44)
[2021-04-29] MEDS: LOVENOX INJ 100 MG SYR SC SCH ×2 (08:44→22:24)
[2021-04-29] MEDS: VITAMIN A PO SCH (08:45)
[2021-04-29] MEDS: ROCEPHIN VIAL 1 GRAM 1 G in NS 100 ML IV + SPIKE MINIBAG* 100 ML IV SCH (08:45)
[2021-04-29] MEDS: ZINC SULFATE PO SCH ×2 (08:45→21:00)
[2021-04-29] MEDS: VITAMIN D3 125 mcg (5,000 UNITS) PO SCH (08:45)
[2021-04-29] MEDS: THIAMINE HCL INJ IVP SCH ×2 (08:45→22:26)
[2021-04-29] MEDS: K-DUR TAB 20 MEQ PO PRN (08:46)
[2021-04-29] MEDS: BROVANA IN SCH ×2 (09:03→20:28)
[2021-04-29] MEDS: PULMICORT NEB TX 0.5 MG NEB SCH ×2 (09:03→20:28)
[2021-04-29] MEDS: K-RIDER 10 MEQ/NS 100 ML 10 MEQ/100 ML BAG IV PRN ×4 (12:59→19:36)
[2021-04-29] MEDS: SOLU-Medrol 40 MG VIAL IVP SCH ×2 (14:17→21:00)
[2021-04-29] MEDS: MELATONIN PO SCH (21:00)
[2021-04-30] MEDS: NS 1,000 ML IV 1,000 ML IV SCH ×4 (00:17→21:00)
[2021-04-30] MEDS: ASCORBIC ACID INJ MULTI-DOSE VIAL 1,500 MG in NS 50 ML IV 50 ML IV SCH ×4 (03:00→20:54)
[2021-04-30 04:48] LABS: BASOPHILS % (AUTO) 0.2 % (0.2-1.0); EOSINOPHILS % (AUTO) 0.5 % (0.9-2.9); HEMOGLOBIN 12.2 g/dL (13.5-18.0); LYMPHOCYTES # (AUTO) 0.3 X10^3/uL (1.3-2.9); LYMPHOCYTES % (AUTO) 5.6 % (21.0-51.0); MEAN CORPUSCULAR HEMOGLOBIN 30.2 pg (27.0-34.0); MEAN CORPUSCULAR VOLUME 88.9 fL (80.0-100.0); MEAN PLATELET VOLUME 8.3 fL (7.4-11.0); MONOCYTES # (AUTO) 0.4 x10^3/uL (0.3-0.8); MONOCYTES % (AUTO) 6.4 % (0.0-13.0); NEUTROPHILS % (AUTO) 87.3 % (42.0-75.0); PLATELET COUNT 196 X10^3/uL (150.0-450.0); RED BLOOD COUNT 4.04 X10^6/uL (4.7-6.0); RED CELL DISTRIBUTION WIDTH 14.7 % (11.6-16.5); WHITE BLOOD COUNT 5.8 X10^3/uL (3.6-10.0)
[2021-04-30 04:58] LABS: ALANINE AMINOTRANSFERASE 70 Units/L (12-78); ALBUMIN 2.1 g/dL (3.4-5.0); ALKALINE PHOSPHATASE 50 Units/L (46-116); ASPARTATE AMINO TRANSFERASE 26 Units/L (15-37); BLOOD UREA NITROGEN 16 mg/dL (7-18); CALCIUM 7.6 mg/dL (8.5-10.1); CARBON DIOXIDE 33.8 mmol/L (21-32); CHLORIDE 103 mmol/L (98-107); COR CA(FOR HYPOALB) 9.1 mg/dL (8.5-10.1); COR NA(FOR HYPERGLY) 146 mmol/L (136-145); CREATININE 0.74 mg/dL (0.70-1.30); SODIUM 144 mmol/L (136-145); TOTAL PROTEIN 5.2 g/dL (6.4-8.2); eGFR NON BLACK RACES > 60 (>60)
[2021-04-30 05:21] LABS: PLATELET MORPHOLOGY COMMENT NORMAL (NORMAL)
[2021-04-30] MEDS: SOLU-Medrol 40 MG VIAL IVP SCH (06:25)
[2021-04-30] MEDS: TESSALON PERLES PO PRN (08:20)
[2021-04-30] MEDS: LIPITOR TAB 80 MG PO SCH (08:20)
[2021-04-30] MEDS: VITAMIN D3 125 mcg (5,000 UNITS) PO SCH (08:20)
[2021-04-30] MEDS: PEPCID TAB 40 MG PO SCH ×2 (08:20→20:52)
[2021-04-30] MEDS ORDERED: PULMICORT NEB TX 0.5 MG NEB ONE ×2 (08:21→19:08)
[2021-04-30] MEDS: CYTOTEC PO SCH ×4 (08:21→20:53)
[2021-04-30] MEDS: ZINC SULFATE PO SCH ×2 (08:21→20:52)
[2021-04-30] MEDS ORDERED: BROVANA IN ONE (08:21)
[2021-04-30] MEDS: PROTONIX INJ 40 MG VIAL IVP SCH (08:21)
[2021-04-30] MEDS: VITAMIN A PO SCH (08:23)
[2021-04-30] MEDS: ROCEPHIN VIAL 1 GRAM 1 G in NS 100 ML IV + SPIKE MINIBAG* 100 ML IV SCH (08:24)
[2021-04-30] MEDS: THIAMINE HCL INJ IVP SCH ×2 (09:16→20:54)
[2021-04-30] MEDS: ELIQUIS PO SCH ×2 (09:45→20:53)
[2021-04-30] MEDS: DECADRON TAB PO SCH (09:45)
[2021-04-30] MEDS ORDERED: BROVANA ONE (19:08)
[2021-04-30] MEDS: PULMICORT NEB TX 0.5 MG NEB SCH (20:35)
[2021-04-30] MEDS: BROVANA IN SCH (20:35)
[2021-04-30] MEDS: MELATONIN PO SCH (20:52)
[2021-05-01] MEDS: ASCORBIC ACID INJ MULTI-DOSE VIAL 1,500 MG in NS 50 ML IV 50 ML IV SCH ×2 (03:00→09:08)
[2021-05-01] MEDS: NS 1,000 ML IV 1,000 ML IV SCH (06:20)
[2021-05-01 06:35] LABS: BASOPHILS % (AUTO) 0.2 % (0.2-1.0); EOSINOPHILS # (AUTO) 0.1 x10^3/uL (0.0-0.2); EOSINOPHILS % (AUTO) 2.2 % (0.9-2.9); HEMATOCRIT 37.4 % (42.0-54.0); HEMOGLOBIN 12.5 g/dL (13.5-18.0); LYMPHOCYTES # (AUTO) 0.6 X10^3/uL (1.3-2.9); LYMPHOCYTES % (AUTO) 9.1 % (21.0-51.0); MEAN CORPUSCULAR HEMOGLOBIN 30.3 pg (27.0-34.0); MEAN CORPUSCULAR HGB CONC 33.5 g/dL (33.0-35.0); MEAN CORPUSCULAR VOLUME 90.4 fL (80.0-100.0); MEAN PLATELET VOLUME 8.4 fL (7.4-11.0); MONOCYTES # (AUTO) 0.6 x10^3/uL (0.3-0.8); NEUTROPHILS # (AUTO) 5.1 x10^3/uL (2.2-4.8); NEUTROPHILS % (AUTO) 78.5 % (42.0-75.0); PLATELET COUNT 188 X10^3/uL (150.0-450.0); RED BLOOD COUNT 4.13 X10^6/uL (4.7-6.0); RED CELL DISTRIBUTION WIDTH 15.1 % (11.6-16.5); WHITE BLOOD COUNT 6.5 X10^3/uL (3.6-10.0)
[2021-05-01 06:54] LABS: ALANINE AMINOTRANSFERASE 66 Units/L (12-78); ALBUMIN 2.1 g/dL (3.4-5.0); ALKALINE PHOSPHATASE 47 Units/L (46-116); ASPARTATE AMINO TRANSFERASE 26 Units/L (15-37); BLOOD UREA NITROGEN 20 mg/dL (7-18); CALCIUM 7.7 mg/dL (8.5-10.1); CARBON DIOXIDE 34.6 mmol/L (21-32); CHLORIDE 103 mmol/L (98-107); COR CA(FOR HYPOALB) 9.2 mg/dL (8.5-10.1); COR NA(FOR HYPERGLY) 143 mmol/L (136-145); CREATININE 0.73 mg/dL (0.70-1.30); SODIUM 142 mmol/L (136-145); TOTAL PROTEIN 5.2 g/dL (6.4-8.2); eGFR NON BLACK RACES > 60 (>60)
[2021-05-01] MEDS: BROVANA IN SCH ×2 (07:50→08:00)
[2021-05-01] MEDS: PULMICORT NEB TX 0.5 MG NEB SCH (08:00)
[2021-05-01 08:06] LABS: BAND NEUTROPHILS % 2 % (0-10); PLATELET MORPHOLOGY COMMENT NORMAL (NORMAL)
[2021-05-01] MEDS: K-DUR TAB 20 MEQ PO PRN (09:00)
[2021-05-01] MEDS ORDERED: COZAAR PO SCH (09:00)
[2021-05-01] MEDS ORDERED: MUCOMYST (RESPIRATORY USE ONLY) NEB SCH (09:00)
[2021-05-01] MEDS: ZINC SULFATE PO SCH (09:00)
[2021-05-01] MEDS: CYTOTEC PO SCH (09:03)
[2021-05-01] MEDS: LIPITOR TAB 80 MG PO SCH (09:03)
[2021-05-01] MEDS: ELIQUIS PO SCH (09:04)
[2021-05-01] MEDS: PEPCID TAB 40 MG PO SCH (09:04)
[2021-05-01] MEDS: VITAMIN D3 125 mcg (5,000 UNITS) PO SCH (09:04)
[2021-05-01] MEDS: DECADRON TAB PO SCH (09:04)
[2021-05-01] MEDS: THIAMINE HCL INJ IVP SCH (09:07)
[2021-05-01] MEDS: VITAMIN A PO SCH (09:07)
[2021-05-01] MEDS: ROCEPHIN VIAL 1 GRAM 1 G in NS 100 ML IV + SPIKE MINIBAG* 100 ML IV SCH (10:26)
[2021-05-01 10:35] VITALS: BP 156/69
== END 2021-05-01 13:25 | disposition home or self-care (01) | DRG 177 ==
LOC: U 18:20 → ER 18:20 → U 04-24 00:05 → ICU 04-24 13:59 → MED/SURG 04-24 15:58 → ICU 04-24 16:00
PROVIDERS: ADMIT Obstetrics & Gynecology Obstetrics; ATTEND Obstetrics & Gynecology Obstetrics
DX: J12.82 Pneumonia due to coronavirus disease 2019; E86.0 Dehydration; R73.09 Other abnormal glucose; U07.1 COVID-19; R79.82 Elevated C-reactive protein (CRP)

== ENCOUNTER 2021-06-14 10:22 | Inpatient (IN) ==
[2021-06-14] MEDS ORDERED: NS 1,000 ML IV 1,000 ML IV ONE (10:48)
--- NOTE | 2021-06-14 10:56 | DR.SOBA ---
HPI Time Seen Time Seen by Provider: 06/14/21 10:40 Primary Care Physician Primary Care Physician: MARCIO WISDOM Complaints Chief Complaint Doctors Comments: SOB AND WEAKNESS STARTING 8 HOURS AGO. STOPPED STEROIDS 2 DAYS AGO AFTER BEING TREATED FOR COVID PNEUMONIA. DENIES CHEST PAIN. Chief Complaint:: AROND 3AM THIS MORNING PATIENT C/O OF SOB AND WEAKNESS. HAS JUST FINISHED A ROUND OF STERIODS TWO DAYS AGO FOR SOB AND PNEUMONIA. HE WEARS HOME OXYGEN AT 3L SINCE HAVING COVID IN APRIL. COVID-19 Coronavirus risk:travel/contact w/high risk person: No Has patient experienced Coronavirus symptoms: Yes Coronavirus symptoms experienced: Shortness of Breath Source History Provided: Patient and Family Member Mode of Arrival Mode of Arrival: Wheelchair Timing Onset of Chief Complaint: 06/14/21 PMH PMH Past Medical History: Yes Past Medical History: COPD and Hypertension Past Medical History Comment: COVID -19 Past Surgical History: No Surgical History: Other Family History History of Family Medical Conditions: Yes Family Medical History: Diabetes Mellitus Social History Does patient currently use any type of tobacco product: No Have you used tobacco products in the last 12 months: No Type of Tobacco Use: None Does any household member use tobacco: No Alcohol Use: None Do you use any recreational Drugs:: No Lives With: Spouse Lives Where: Home Travel Risk Coronavirus risk:travel/contact w/high risk person: No Has patient experienced Coronavirus symptoms: Yes Coronavirus symptoms experienced: Shortness of Breath Infectious screening In the last 2 months have you had wt loss of >10#?: NO Have you had fever, night sweats or hemotysis?: No Have you traveled outside the country in the last 6 months?: No Isolation: Droplet ROS Review of Systems Constitutional: No Symptoms Reported Eyes: No Symptoms Reported ENTM: No Symptoms Reported Respiratoy: Short of Breath Cardiovascular: No Symptoms Reported Gastrointestinal/Abdominal: No Symptoms Reported Genitourinary: No Symptoms Reported Neurological: No Symptoms Reported Musculoskeletal: No Symptoms Reported Integumentary: No Symptoms Reported Hematologic/Lymphatic: No Symptoms Reported Endocrine: No Symptoms Reported Psychiatric: No Symptoms Reported All Other Systems: Reviewed and Negative PE Vital Signs Vitals: Temperature 97.9 F Pulse Rate 85 Respiratory Rate 24 Blood Pressure [Left Arm] 145/67 Blood Pressure 99/51 O2 Sat by Pulse Oximetry 92 General Limitations: No Limitations General Appearance: Alert and In No Apparent Distress Head Head Exam: Normal Inspection Eyes Eye exam: Normal Appearance ENT ENT Exam: Normal Exam Neck Neck Exam: Normal Inspection Chest Chest Inspection: Normal Inspection Respiratory Respiratory Exam: Normal Lung Sounds Bilat Respiratory Exam: Bilateral: Clear to Auscultation Cardiovascular Cardiovascular Exam: Normal Rhythm and Tachycardia Abdominal Exam Abdominal Exam: Normal Inspection, Normal Bowel Sounds and Soft Extremities Extremities Exam: Normal Inspection Back Back Exam: Normal Inspection Neurologic Neurological Exam: Alert and Oriented X3 Psychiatric Psychiatric Exam: Normal Affect and Normal Mood Skin Skin Exam: Warm, Dry, Intact and Normal Color MDM Additional Information Obtained Additional Findings:: PSVT,SHORTNESS OF BREATH,COPD,CHF,HYPOTENSION Differential Diagnosis Differential Diagnosis: CHF, COPD, PSVT and Respiratory Insufficiency COURSE Treatment Treatment: THE PATIENT REQUIRED A BOLUS OF NACL OF ONE LITER AND LANOXIN 250MCG FOR HEART RATE OF 167 WITH HYPOTENSION. THE PATIENT CONVERTED BACL TO SINUS RHYTHM WITH RATE OF 99 AFTER ABOUT 45 MINUTES AFTER TREATMENT HAD BEEN STARTED. HIS BLOOD PRESSURE DROPPED TP 68 SYSTOLIC BUT RETURNED TO MAINTAIN 90-97 SYSTOLIC. CONTACT WAS MADE WITH DR MONTAÑO AT 1455 AND HE WILL ACCEPT THE PATIENT FOR OBSEVATIION FOR FURTHER EVALUATION FOR PSVT WITH HYPOTENSION AND DEHYDRATION. THE PATIENT WAS MADE AWARE OF THE INTENT AND WAS AGGREABLE. CARDIAC ENZYMES WERE NORMAL AND BNP WAS NORMAL. ROR Labs Reviewed Laboratory Results Reviewed?: Yes Result Diagrams: 06/14/21 10:45 06/14/21 10:45 Laboratory: WBC 12.6 X10^3/uL (3.6-10.0) H 06/14/21 10:45 RBC 4.47 X10^6/uL (4.7-6.0) L 06/14/21 10:45 Hgb 13.7 g/dL (13.5-18.0) 06/14/21 10:45 Hct 41.0 % (42.0-54.0) L 06/14/21 10:45 MCV 91.7 fL (80.0-100.0) 06/14/21 10:45 MCH 30.8 pg (27.0-34.0) 06/14/21 10:45 MCHC 33.5 g/dL (33.0-35.0) 06/14/21 10:45 RDW 18.1 % (11.6-16.5) H 06/14/21 10:45 Plt Count 146 X10^3/uL (150.0-450.0) L 06/14/21 10:45 MPV 7.6 fL (7.4-11.0) 06/14/21 10:45 Neut % (Auto) 71.1 % (42.0-75.0) 06/14/21 10:45 Lymph % (Auto) 17.9 % (21.0-51.0) L 06/14/21 10:45 [place] % (Auto) 7.7 % (0.0-13.0) 06/14/21 10:45 Eos % (Auto) 2.5 % (0.9-2.9) 06/14/21 10:45 Baso % (Auto) 0.8 % (0.2-1.0) 06/14/21 10:45 Neut # (Auto) 8.9 x10^3/uL (2.2-4.8) H 06/14/21 10:45 Lymph # (Auto) 2.2 X10^3/uL (1.3-2.9) 06/14/21 10:45 [place] # (Auto) 1.0 x10^3/uL (0.3-0.8) H 06/14/21 10:45 Eos # (Auto) 0.3 x10^3/uL (0.0-0.2) H 06/14/21 10:45 Baso # (Auto) 0.1 X10^3/uL (0.0-0.1) 06/14/21 10:45 Absolute Nucleated RBC 0.0 /100WBC 06/14/21 10:45 PT 13.2 SECONDS (11.8-14.3) 06/14/21 10:45 INR Target Range - 06/14/21 10:45 INR 1.05 (0.8-1.3) 06/14/21 10:45 APTT 28.0 SECONDS (22.9-36.5) 06/14/21 10:45 PTT Comment - 06/14/21 10:45 D-Dimer 0.85 ug/ml (0.0-0.57) H* 06/14/21 11:02 Sodium 137 mmol/L (136-145) 06/14/21 10:45 Corrected Sodium 138 mmol/L (136-145) 06/14/21 10:45 Potassium 4.0 mmol/L (3.5-5.1) 06/14/21 10:45 Chloride 100 mmol/L (98-107) 06/14/21 10:45 Carbon Dioxide 27.1 mmol/L (21-32) 06/14/21 10:45 BUN 24 mg/dL (7-18) H 06/14/21 10:45 Creatinine 0.98 mg/dL (0.70-1.30) 06/14/21 10:45 Est GFR (MDRD) Af Amer > 60 (>60) 06/14/21 10:45 Est GFR (MDRD) Non-Af > 60 (>60) 06/14/21 10:45 Glucose 139 mg/dL (65-99) H 06/14/21 10:45 Calcium 8.7 mg/dL (8.5-10.1) 06/14/21 10:45 Corrected Calcium 9.5 mg/dL (8.5-10.1) 06/14/21 10:45 Magnesium 1.8 mg/dL (1.7-2.9) 06/14/21 10:45 Total Bilirubin 0.80 mg/dL (0.2-1.0) 06/14/21 10:45 AST 25 Units/L (15-37) 06/14/21 10:45 ALT 26 Units/L (12-78) 06/14/21 10:45 Alkaline Phosphatase 76 Units/L (46-116) 06/14/21 10:45 Creatine Kinase 36 Units/L (39-308) L 06/14/21 10:45 CK-MB (CK-2) 1.2 ng/mL (0-4.0) 06/14/21 10:45 CK/CKMB % Calc 3.3 % (<4) 06/14/21 10:45 Troponin I High Sens 48.9 ng/L (4.0-60.0) 06/14/21 10:45 C-Reactive Protein 56.50 mg/L (0-3.0) H 06/14/21 10:45 B-Natriuretic Peptide 44.1 pg/mL (0-79) 06/14/21 10:45 Total Protein 6.8 g/dL (6.4-8.2) 06/14/21 10:45 Albumin 3.0 g/dL (3.4-5.0) L 06/14/21 10:45 Globulin 3.8 g/dL (2.5-4.5) 06/14/21 10:45 Albumin/Globulin Ratio 0.8 Ratio (1.1-2.1) L 06/14/21 10:45 Specimen Type Clean catch urine 06/14/21 13:20 Urine Color Yellow (YELLOW) 06/14/21 13:20 Urine Appearance Clear (CLEAR) 06/14/21 13:20 Urine pH 7.0 (5.0 - 8.0) 06/14/21 13:20 Ur Specific [place] 1.015 (1.000-1.030) 06/14/21 13:20 Urine Protein 1+ (NEGATIVE) 06/14/21 13:20 Urine Glucose (UA) Negative (NEGATIVE) 06/14/21 13:20 Urine Ketones Negative (NEGATIVE) 06/14/21 13:20 Urine Occult Blood Negative (NEGATIVE) 06/14/21 13:20 Urine Nitrite Negative (NEGATIVE) 06/14/21 13:20 Urine Bilirubin Negative (NEGATIVE) 06/14/21 13:20 Urine Urobilinogen 1+ (NORMAL) 06/14/21 13:20 Ur Leukocyte Esterase 1+ (NEGATIVE) 06/14/21 13:20 Urine RBC None seen /HPF (0-3) 06/14/21 13:20 Urine WBC 0-2 /HPF (0-5) 06/14/21 13:20 Ur Squamous Epith Cells Rare /HPF (NEGATIVE) 06/14/21 13:20 Urine Bacteria Negative /HPF (NEGATIVE) 06/14/21 13:20 Ur Culture Indicated? No/not indicated 06/14/21 13:20 SARS-CoV-2 (PCR) Negative (NEGATIVE) 06/14/21 15:17 Influenza Type A (PCR) Negative (NEGATIVE) 06/14/21 15:17 Influenza Type B (PCR) Negative (NEGATIVE) 06/14/21 15:17 RSV (PCR) Negative (NEGATIVE) 06/14/21 15:17 XRAY XRAY Interpreted by: Radiologist (HAZY AN INTERSTITAL MID TO LOWER LUNGPULMONARY OPACITIES ARE NONSPECIFIC BUT MAY REPRESENT PNEUMONIA IN THE APROPRIATE CLINICAL SETTING. SUSPCTSMLL PLEURAL EFUSIONS. ) EKG Rhythm: NSR (CONVERTED TO SINUS RHYTHM AFTER 250MCG OF LANOXIN IV IN ER.) and PSVT (INITIAL WITH RATE OF 167) Opioid Opioid Risk Tool Age (Hill box if 16-45): No History of Preadolescent Sexual Abuse: No Total: 0 Total Score Risk Category: Low Risk Copyright: [facility] predicting aberrant behaviors Diagnosis Discharge Problem: Paroxysmal supraventricular tachycardia, Dehydration Hypotension Qualifiers: Qualified Code(s): I95.9 - Hypotension, unspecified COPD (chronic obstructive pulmonary disease) Qualifiers: Qualified Code(s): J44.9 - Chronic obstructive pulmonary disease, unspecified Instructions Forms: Precautions for COVID19 [facility] Social Distancing
[2021-06-14 11:02] LABS: BASOPHILS # (AUTO) 0.1 X10^3/uL (0.0-0.1); BASOPHILS % (AUTO) 0.8 % (0.2-1.0); EOSINOPHILS # (AUTO) 0.3 x10^3/uL (0.0-0.2); EOSINOPHILS % (AUTO) 2.5 % (0.9-2.9); HEMOGLOBIN 13.7 g/dL (13.5-18.0); LYMPHOCYTES # (AUTO) 2.2 X10^3/uL (1.3-2.9); LYMPHOCYTES % (AUTO) 17.9 % (21.0-51.0); MEAN CORPUSCULAR HEMOGLOBIN 30.8 pg (27.0-34.0); MEAN CORPUSCULAR HGB CONC 33.5 g/dL (33.0-35.0); MEAN CORPUSCULAR VOLUME 91.7 fL (80.0-100.0); MEAN PLATELET VOLUME 7.6 fL (7.4-11.0); MONOCYTES % (AUTO) 7.7 % (0.0-13.0); NEUTROPHILS # (AUTO) 8.9 x10^3/uL (2.2-4.8); NEUTROPHILS % (AUTO) 71.1 % (42.0-75.0); RED BLOOD COUNT 4.47 X10^6/uL (4.7-6.0); RED CELL DISTRIBUTION WIDTH 18.1 % (11.6-16.5); WHITE BLOOD COUNT 12.6 X10^3/uL (3.6-10.0)
[2021-06-14] MEDS ORDERED: LANOXIN INJ IVP ONE ×2 (11:02→11:23)
[2021-06-14] MEDS ORDERED: LANOXIN INJ ONE (11:05)
--- NOTE | 2021-06-14 11:26 | RAD ---
HISTORYAROND 3AM THIS MORNING PATIENT C/O OF SOB AND WEAKNESS. HAS JUST FINISHED A ROUND OF STERIODS TWO DAYS AGO FOR SOB AND PNEUMONIASTUDYCHEST, 1 [id number]/04/2022.TECHNIQUEAP view of the chestFINDINGSPatient is rotated. Patient's chin obscures portions of right worse than left lung apex. Cardiac and mediastinal contours are within normal limits. Right worse than left mid to lower lung hazy and interstitial pulmonary opacities are present and similar to prior. There is blunted costophrenic sulci. No pneumothorax.IMPRESSIONSimilar appearance to prior. Hazy and interstitial mid to lower lung pulmonary opacities are nonspecific but may represent pneumonia in the appropriate clinical setting. Suspect small pleural effusions. Recommend follow-up to document resolution.Electronically signed by: Hardy Ochoa (Jun 14, 2021 11:24:42)
[2021-06-14 11:31] LABS: ALANINE AMINOTRANSFERASE 26 Units/L (12-78); ALKALINE PHOSPHATASE 76 Units/L (46-116); ASPARTATE AMINO TRANSFERASE 25 Units/L (15-37); BLOOD UREA NITROGEN 24 mg/dL (7-18); CALCIUM 8.7 mg/dL (8.5-10.1); CARBON DIOXIDE 27.1 mmol/L (21-32); CHLORIDE 100 mmol/L (98-107); CKMB % 3.3 % (<4); COR CA(FOR HYPOALB) 9.5 mg/dL (8.5-10.1); COR NA(FOR HYPERGLY) 138 mmol/L (136-145); CREATINE KINASE 36 Units/L (39-308); CREATINE KINASE MB 1.2 ng/mL (0-4.0); CREATININE 0.98 mg/dL (0.70-1.30); SODIUM 137 mmol/L (136-145); TOTAL PROTEIN 6.8 g/dL (6.4-8.2); eGFR NON BLACK RACES > 60 (>60)
[2021-06-14 13:33] LABS: BILIRUBIN,URINE NEGATIVE (NEGATIVE); BLOOD/HEMOGLOBIN,URINE NEGATIVE (NEGATIVE); GLUCOSE, URINE NEGATIVE (NEGATIVE); KETONES,URINE NEGATIVE (NEGATIVE); LEUKOCYTE ESTERASE ,URINE 1+ (NEGATIVE); NITRITES,URINE NEGATIVE (NEGATIVE); PROTEIN,URINE 1+ (NEGATIVE); UROBILINOGEN,URINE 1+ (NORMAL)
[2021-06-14 13:46] LABS: APPEARANCE,URINE CLEAR (CLEAR); COLOR,URINE YELLOW (YELLOW)
[2021-06-14 13:48] LABS: BACTERIA,URINE NEGATIVE /HPF (NEGATIVE); RBC,URINE NONE SEEN /HPF (0-3); SQUAMOUS EPITHELIAL CELL,UR RARE /HPF (NEGATIVE)
[2021-06-14] MEDS: NS 1,000 ML IV 1,000 ML IV SCH (17:18)
[2021-06-14] MEDS ORDERED: PULMICORT NEB TX 0.5 MG NEB ONE (19:22)
[2021-06-14] MEDS ORDERED: PROVENTIL NEB TX 0.083% 2.5MG/ 3ML ONE (19:22)
[2021-06-14] MEDS: PULMICORT NEB TX 0.5 MG NEB SCH (20:10)
[2021-06-14] MEDS: PROVENTIL NEB TX 0.083% 2.5MG/ 3ML NEB SCH (20:10)
[2021-06-14] MEDS ORDERED: MAALOX or MYLANTA PO PRN (21:00)
[2021-06-14] MEDS: SOLU-Medrol 40 MG VIAL IVP SCH ×2 (21:33→22:44)
[2021-06-14] MEDS: FLOMAX PO SCH (22:43)
[2021-06-14] MEDS: CYTOTEC PO SCH (22:43)
[2021-06-14] MEDS: LEVAQUIN PREMIX IV 500 MG 500 MG/100 ML BAG IV SCH (22:44)
[2021-06-15] MEDS: RESTORIL CAP 15 MG PO PRN (00:13)
[2021-06-15] MEDS: PROVENTIL NEB TX 0.083% 2.5MG/ 3ML NEB SCH ×4 (00:30→13:25)
[2021-06-15] MEDS: NS 1,000 ML IV 1,000 ML IV SCH ×4 (03:11→18:12)
[2021-06-15 04:12] LABS: ABG BASE EXCESS 8.5 mmol/L (-2.0-2.0); ABG HCO3 32.8 mmol/L (22-26)
[2021-06-15 04:13] LABS: ABG ALLEN TEST POS
[2021-06-15] MEDS: SOLU-Medrol 40 MG VIAL IVP SCH ×3 (05:30→21:38)
[2021-06-15] MEDS: CYTOTEC PO SCH ×3 (05:30→21:38)
--- NOTE | 2021-06-15 06:49 | RAD ---
HISTORYSOBSTUDYCHEST, 1 VIEWCOMPARISONOne day prior.TECHNIQUEAP view of the chestFINDINGSThe cardiac and mediastinal contours appear stable. No significant change in bilateral airspace and interstitial opacities. Cannot exclude small pleural effusions. Soft tissue attenuation limits evaluation.IMPRESSIONNo significant change.Electronically signed by: Hardy Ochoa (Jun 15, 2021 06:47:54)
[2021-06-15 06:52] LABS: BASOPHILS % (AUTO) 0.2 % (0.2-1.0); HEMATOCRIT 31.3 % (42.0-54.0); HEMOGLOBIN 10.8 g/dL (13.5-18.0); LYMPHOCYTES # (AUTO) 0.6 X10^3/uL (1.3-2.9); LYMPHOCYTES % (AUTO) 8.1 % (21.0-51.0); MEAN CORPUSCULAR HEMOGLOBIN 31.3 pg (27.0-34.0); MEAN CORPUSCULAR HGB CONC 34.4 g/dL (33.0-35.0); MEAN CORPUSCULAR VOLUME 90.8 fL (80.0-100.0); MEAN PLATELET VOLUME 7.7 fL (7.4-11.0); MONOCYTES # (AUTO) 0.2 x10^3/uL (0.3-0.8); MONOCYTES % (AUTO) 2.5 % (0.0-13.0); NEUTROPHILS # (AUTO) 7.1 x10^3/uL (2.2-4.8); NEUTROPHILS % (AUTO) 89.2 % (42.0-75.0); RED BLOOD COUNT 3.44 X10^6/uL (4.7-6.0); RED CELL DISTRIBUTION WIDTH 18.1 % (11.6-16.5); WHITE BLOOD COUNT 7.9 X10^3/uL (3.6-10.0)
[2021-06-15 07:03] LABS: ALANINE AMINOTRANSFERASE 21 Units/L (12-78); ALBUMIN 2.2 g/dL (3.4-5.0); ALKALINE PHOSPHATASE 62 Units/L (46-116); ASPARTATE AMINO TRANSFERASE 29 Units/L (15-37); BLOOD UREA NITROGEN 23 mg/dL (7-18); CALCIUM 7.8 mg/dL (8.5-10.1); CARBON DIOXIDE 27.5 mmol/L (21-32); CHLORIDE 106 mmol/L (98-107); COR CA(FOR HYPOALB) 9.2 mg/dL (8.5-10.1); COR NA(FOR HYPERGLY) 142 mmol/L (136-145); CREATININE 0.71 mg/dL (0.70-1.30); SODIUM 140 mmol/L (136-145); TOTAL PROTEIN 5.4 g/dL (6.4-8.2); eGFR NON BLACK RACES > 60 (>60)
[2021-06-15] MEDS: PULMICORT NEB TX 0.5 MG NEB SCH ×2 (08:39→20:01)
[2021-06-15] MEDS ORDERED: DECADRON TAB PO SCH (09:00)
--- NOTE | 2021-06-15 10:31 | DR.H&P ---
H&P - History & Physical for Day of: H&P Date: 06/14/21 - Chief Complaint Chief Complaint: COUGH, WEAKNESS, TACHYCARDIA - History of Present Illness History of Present Illness: IS A 81 YEAR OLD PATIENT OF . HE PRESENTED TO THE ER WITH COMPLAINTS OF INCREASING SHORTNESS OF BREATH AND WEAKNESS. PATIENT REPORTS FINISHING DEXAMETHASONE FOR TREATMENT OF COVID-19 TWO DAYS AGO. HE REPORTS THAT HIS SYMPTOMS HAVE WORSENED OVER THE PAST 8 HOURS PRIOR TO ARRIVAL. PATIENT FIRST TESTED POSITIVE FOR COVID-19 IN APRIL 2021. HE HAS BEEN UTILIZING OXYGEN VIA NASAL CANNULA AT 2-3 LPM AT HOME. HIS PMH INCLUDES COPD AND HYPERTENSION. ON ARRIVAL TO THE HOSPITAL, HIS VITALS WERE 97.9-HR 170, RR 24, 02 96 NC@3, 91/51. LABS WERE OBTAINED. WBC 12.6, RBC 4.47, HGB 13.7, HCT 41.0, D-DIMER 0.85, SODIUM 137, POTASSIUM 4.0, BUN 24, CREATININE 0.98, GLUCOSE 139, CRP 56.50, ALBUMIN 3.0. CARDIAC ENZYMES WERE WITHIN NORMAL LIMITS. URINALYSIS UNREMARKABLE. COVID, INFLUENZA, AND RSV NEGATIVE. BLOOD CULTURES WERE SET UP. EKG WAS OBTAINED AND REVEALED: TACHYCARDIA WITH WIDE COMPLEX, HR 168. CHEST XRAY WAS OBTAINED AND REVEALED: Similar appearance to prior. Hazy and interstitial mid to lower lung pulmonary opacities are nonspecific but may r epresent pneumonia in the appropriate clinical setting. Suspect small pleural effusions. WHILE IN THE ER, PATIENTS SATURATIONS DROPPED TO THE LOWER 80s ON 3 LPM. OXYGEN WAS INCREASED TO 4 LPM. SATURATIONS INCREASED TO 92%. IN THE ER, HE WAS GIVEN A NORMAL SALINE BOLUS, LANOXIN 125MCG IV X 2 DOSES. HR EVENTUALLY DECREASED TO THE 90s. HE WAS ADMITTED TO THE HOSPITAL FOR FURTHER EVALUATION AND TREATMENT OF PAROXYSMAL SVT, HYPOTENSION, DEHYDRATION, PNEUMONIA DUE TO COVID- 19. HE WAS STARTED ON NORMAL SALINE AT 125 ML/HR, LEVAQUIN 500MG IV DAILY, PROVENTIL NEBS Q4H, PULMICORT NEBS BID, SOLU-MEDROL 80MG IV Q8H, CYTOTEC 100MCG PO TID, FLOMAX 0.4MG PO HS, AND RESTORIL 15MG PO HS PRN. HE WILL BE PLACED ON TELEMETRY. WE WILL OBTAIN A CHEST CTA TO RULE OUT PE. OTHERWISE, WE PLAN TO FOLLOW UP WITH AM LABS AND CONTINUE OT MONITOR. - Past Medical History Past Medical History: Hypertension, COPD - Past Surgical History Surgical History: Other - Family History Family Medical History: Diabetes Mellitus - Social History Does patient currently use any type of tobacco product: No Have you used tobacco products in the last 12 months: No Type of Tobacco Use: None Does any household member use tobacco: No Alcohol Use: None Drug Use: None - Medications Home Medications: Latex, Natural Rubber Allergy (Unknown, Verified 10/20/17 20:02) CONTINUE taking the following medications dexamethasone 2 mg PO DAILY 06/14/21 [History] tamsulosin 0.4 mg PO HS 06/14/21 [History] - Review of Systems Constitutional: Weakness Eyes: No Symptoms Reported ENT: No Symptoms Reported Respiratory: Shortness of Breath, SOB with Excertion Cardiovascular: Palpitations Gastrointestinal: No Symptoms Reported Genitourinary: No Symptoms Reported Musculoskeletal: No Symptoms Reported Skin: No Symptoms Reported Neurological: Weakness - Physical Exam Vital Signs: Temperature 97.5 F Pulse Rate [Right Brachial] 87 Pulse Rate 86 Respiratory Rate 28 Blood Pressure [Right Arm] 126/59 Blood Pressure [Left Arm] 145/67 Blood Pressure 101/53 O2 Sat by Pulse Oximetry 94 Oriented: Normal Eyes: Normal Ear: Normal Nose: Normal Throat: Normal Respiratory: Diminished Throughout Cardiovascular: Tachycardia : Normal Auscultation: Bowel Sounds: Normal Palpation: Normal Tenderness: Normal Skin: Normal Musculoskeletal: Normal Psychiatric: Normal Mood Description: Calm Affect: Normal Speech Pattern: Clear - Assessment/Plan (1) Paroxysmal supraventricular tachycardia Status: Acute Plan: ADMIT, SUPPLEMENTAL OXYGEN, NORMAL SALINE AT 125 ML/HR, LEVAQUIN 500MG IV DAILY, PROVENTIL NEBS Q4H, PULMICORT NEBS BID, SOLU-MEDROL 80MG IV Q8H, CYTOTEC 100MCG PO TID, FLOMAX 0.4MG PO HS, AND RESTORIL 15MG PO HS PRN (2) Pneumonia due to COVID-19 virus Status: Acute (3) Dehydration Status: Acute (4) Hypotension Qualifiers: Hypotension type: unspecified hypotension type Qualified Code(s): I95.9 - Hypotension, unspecified Status: Acute (5) COPD (chronic obstructive pulmonary disease) Qualifiers: COPD type: unspecified COPD Qualified Code(s): J44.9 - Chronic obstructive pulmonary disease, unspecified Status: Chronic - Allergies Allergies/Adverse Reactions: Allergies Allergy/AdvReac Type Severity Reaction Status Date / Time Latex, Natural Rubber Allergy Unknown Verified 10/20/17 20:02
[2021-06-15] MEDS: LEVAQUIN PREMIX IV 500 MG 500 MG/100 ML BAG IV SCH (11:00)
--- NOTE | 2021-06-15 18:48 | CT ---
HISTORYSOB, HYPOXIA, HX COVID, RULE OUT PESTUDYCTA CHESTCOMPARISONNone availableTECHNIQUEMultiple axial images of the chest were obtained from the thoracic inlet to the upper abdomen after the administration of IV contrast. 3D reconstructions utilizing axial MIPS imaging was performed and reviewed. Dose reduction techniques including Automated Exposure Control (AEC) and adjustment of mA and kV were utilized.FINDINGSThere is no PE within the main or segmental pulmonary arteries. Contrast bolus timing makes visualization of the subsegmental pulmonary arteries significantly limited.Pulmonary arteries normal in caliber. No right ventricular heart strain. Heart size is normal without pericardial effusion. Borderline enlarged prevascular, paratracheal, subcarinal and right hilar lymph nodes.Fairly severe chronic interstitial lung changes with traction bronchiectasis within the right middle, right lower lobes and lingula. There is moderate peribronchial consolidation within the posterior left upper lobe, right middle and lower lobes. There is mild peribronchial consolidation within the dependent left lower lobe. There is fairly severe centrilobular paraseptal emphysema. Diffuse peribronchial thickening is noted bilaterally. There is a small left sided pleural effusion. No acute inflammatory process within visualized abdomen colonic diverticulosis. Moderate calcified atherosclerotic disease abdominal aorta and large branch vessels.IMPRESSIONNo PTE involving the main or segmental pulmonary arteries. There is limited evaluation of subsegmental pulmonary artery secondary to contrast bolus timing.COPD with chronic interstitial lung disease and moderate traction bronchiectasis within both lungs, there is also peribronchial consolidation within the right middle, right lower lobe, lingula and to lesser degree periphery the left lower lobe consistent with multifocal infiltrates/pneumonia.Small left-sided pleural effusion.Borderline mediastinal and right hilar lymph node enlargement likely reactive to above described chronic interstitial lung changes and multifocal infiltrates.Additional incidental, nonacute findings as described above..Electronically signed by: MARCIO CHANEY (Jun 15, 2021 18:46:47)
[2021-06-15] MEDS: FLOMAX PO SCH (21:37)
[2021-06-16] MEDS: XOPENEX 1.25 MG/3 ML NEBULE NEB SCH ×6 (00:30→23:11)
[2021-06-16] MEDS: NS 1,000 ML IV 1,000 ML IV SCH ×3 (04:29→16:09)
[2021-06-16] MEDS: SOLU-Medrol 40 MG VIAL IVP SCH ×3 (06:02→21:16)
[2021-06-16] MEDS: CYTOTEC PO SCH ×3 (06:02→21:16)
--- NOTE | 2021-06-16 06:23 | RAD ---
HISTORYSOBSTUDYCHEST, 1 [id number]/26/2022.TECHNIQUEAP view of the chestFINDINGSThe cardiac silhouette is stably enlarged. Mediastinal contours appear stable. No significant change in bilateral airspace and interstitial opacities. Cannot exclude small pleural effusions. No pneumothorax.IMPRESSIONNo significant change radiographically. Background of COPD noted.Electronically signed by: Hardy Ochoa (Jun 16, 2021 06:22:49)
[2021-06-16 06:48] LABS: BASOPHILS % (AUTO) 0.1 % (0.2-1.0); HEMATOCRIT 32.4 % (42.0-54.0); HEMOGLOBIN 11.2 g/dL (13.5-18.0); LYMPHOCYTES # (AUTO) 0.7 X10^3/uL (1.3-2.9); LYMPHOCYTES % (AUTO) 5.3 % (21.0-51.0); MEAN CORPUSCULAR HEMOGLOBIN 31.4 pg (27.0-34.0); MEAN CORPUSCULAR HGB CONC 34.6 g/dL (33.0-35.0); MEAN CORPUSCULAR VOLUME 90.7 fL (80.0-100.0); MEAN PLATELET VOLUME 7.5 fL (7.4-11.0); MONOCYTES # (AUTO) 0.3 x10^3/uL (0.3-0.8); MONOCYTES % (AUTO) 2.3 % (0.0-13.0); NEUTROPHILS # (AUTO) 12.1 x10^3/uL (2.2-4.8); NEUTROPHILS % (AUTO) 92.3 % (42.0-75.0); RED BLOOD COUNT 3.57 X10^6/uL (4.7-6.0); RED CELL DISTRIBUTION WIDTH 18.6 % (11.6-16.5); WHITE BLOOD COUNT 13.1 X10^3/uL (3.6-10.0)
[2021-06-16 07:10] LABS: ALANINE AMINOTRANSFERASE 29 Units/L (12-78); ALBUMIN 2.3 g/dL (3.4-5.0); ALKALINE PHOSPHATASE 70 Units/L (46-116); ASPARTATE AMINO TRANSFERASE 34 Units/L (15-37); BLOOD UREA NITROGEN 22 mg/dL (7-18); CALCIUM 8.3 mg/dL (8.5-10.1); CARBON DIOXIDE 28.5 mmol/L (21-32); CHLORIDE 107 mmol/L (98-107); COR CA(FOR HYPOALB) 9.7 mg/dL (8.5-10.1); COR NA(FOR HYPERGLY) 143 mmol/L (136-145); CREATININE 0.55 mg/dL (0.70-1.30); SODIUM 142 mmol/L (136-145); TOTAL PROTEIN 5.8 g/dL (6.4-8.2); eGFR NON BLACK RACES > 60 (>60)
[2021-06-16 07:57] LABS: BAND NEUTROPHILS % 8 % (0-10); METAMYELOCYTES % 1
[2021-06-16 07:58] LABS: PLATELET MORPHOLOGY COMMENT NORMAL (NORMAL)
[2021-06-16] MEDS: LEVAQUIN PREMIX IV 500 MG 500 MG/100 ML BAG IV SCH (08:29)
[2021-06-16 08:51] LABS: ABG BASE EXCESS 4.7 mmol/L (-2.0-2.0); ABG HCO3 29.2 mmol/L (22-26)
[2021-06-16 08:52] LABS: ABG ALLEN TEST POS
[2021-06-16] MEDS: PULMICORT NEB TX 0.5 MG NEB SCH ×2 (08:54→21:05)
--- NOTE | 2021-06-16 10:39 | PCM.PROG ---
Progress Note - Progress Note for Day of Date of Exam: 06/16/21 - Subjective Subjective: WAS ADMITTED FOR TREATMENT OF PAROXYSMAL SVT, PNEUMONIA, COPD EXACERBATION, DEHYDRATION, HYPOTENSION. TODAY, HE IS ALERT, SITTING UP IN BED ON MORNING ROUNDS. HE CONTINUES WITH COMPLAITNS OF SHORTNESS OF BREATH TODAY. HE DOES ADMIT TO SLIGHT IMPROVEMENT THIS MORNING. HE IS CURRENTLY UTILIZING HEATED HIGH FLOW OXYGEN AT 87% FI02. HIS SATURATIONS HAVE BEEN 87-93% THIS MORNING AND THROUGHOUT THE NIGHT. ON EXAMINATION, HEART IS REGULAR IN RATE AND RHYTHM. EXPIRATORY WHEEZING NOTED TO AUSCULTATION. ABDOMEN IS ROUND, SOFT, AND NON-TENDER WITH NORMAL BOWEL SOUNDS NOTED IN ALL QUADRANTS. HIS VITALS THIS MORNING ARE: 98.4-86-20-92%-145/74. LABS WERE OBTAINED. ABNORMAL LAB VALUES INCL UDE THE FOLLOWING: WBC 13.1, RBC 3.57, HGB 11.2, HCT 32.4, PLT COUNT 113, BUN 22, CREATININE 0.55, GLUCOSE 159, CALCIUM 8.3, CRP 98.20, TOTAL PROTEIN 5.8, ALBUMIN 2.3. ABG REVEALED: PH 7.450, PC02 42, P02 70, HC03 29.2, 02 SAT 95, A-A GRADIENT 498, FI02 87. BLOOD CULTURES ARE PENDING. WE OBTAINED A CHEST CTA YESTERDAY. IT REVEALED: No PTE involving the main or segmental pulmonary arteries. There is limited evaluation of subsegmental pulmonary artery secondary to contrast bolus timing. COPD with chronic interstitial lung disease and moderate traction bronchiectasis within both lungs, there is also peribronchial consolidation within the right middle, right lower lobe, lingula and to lesser degree periphery the left lower lobe consistent with multifocal infiltrates/pneumonia. Small left-sided pleural effusion. Borderline mediastinal and right hilar lymph node enlargement likely reactive to above described chronic interstitial lung changes and multifocal infiltrates. HE IS CURRENTLY RECEIVING NORMAL SALINE AT 125 ML/HR, LEVAQUIN 500MG IV DAILY, PROVENTIL NEBS Q4H, PULMICORT NEBS BID, SOLU-MEDROL 80MG IV Q8H, CYTOTEC 100MCG PO TID, FLOMAX 0.4MG PO HS, AND RESTORIL 15MG PO HS PRN. WE WILL CONTINUE WITH CURRENT PLAN OF CARE TODAY. OTHERWISE, WE PLAN TO FOLLOW UP WITH AM LABS AND CHEST XRAY AND CONTINUE TO MONITOR. TIME SPENT ON CLINICAL ASSESSMENT, REVIEWING LABS AND IMAGING, DECISION MAKING, AND DOCUMENTATION GREATER THAN 45 MINUTES. - Past Medical Family Social History Past Med/Fam/Surg Hx: No changes since H&P Allergies: Allergies Latex, Natural Rubber Allergy (Unknown, Verified 10/20/17 20:02) - Review of Systems ROS: No change since H&P - Vital Signs and I&O's Vital Signs: Temperature 98.2 F Pulse Rate [Right Brachial] 95 Pulse Rate 83 Respiratory Rate 28 Blood Pressure [Right Arm] 163/74 Blood Pressure [Left Arm] 145/67 Blood Pressure 101/53 O2 Sat by Pulse Oximetry 95 Intake and Output: Intake & Output 06/13/21 06/14/21 06/15/21 06/16/21 11:59 11:59 11:59 11:59 Intake Total 1300 / 1300 4260 / 4260 Balance 1300 / 1300 4260 / 4260 - Physical Exam Oriented: Normal Eyes: Normal Ear: Normal Nose: Normal Throat: Normal Respiratory: Generalized, Diminished, Wheezes Cardiovascular: Normal : Normal Auscultation: Bowel Sounds: Normal Palpation: Normal Tenderness: Normal Skin: Normal Musculoskeletal: Normal Psychiatric: Normal Mood Description: Calm Affect: Normal Speech Pattern: Clear, Appropriate - Laboratory and Diagnostics Result Diagrams: 06/16/21 05:37 06/16/21 05:37 Labs: Laboratory WBC 13.1 X10^3/uL (3.6-10.0) H 06/16/21 05:37 RBC 3.57 X10^6/uL (4.7-6.0) L 06/16/21 05:37 Hgb 11.2 g/dL (13.5-18.0) L 06/16/21 05:37 Hct 32.4 % (42.0-54.0) L 06/16/21 05:37 MCV 90.7 fL (80.0-100.0) 06/16/21 05:37 MCH 31.4 pg (27.0-34.0) 06/16/21 05:37 MCHC 34.6 g/dL (33.0-35.0) 06/16/21 05:37 RDW 18.6 % (11.6-16.5) H 06/16/21 05:37 Plt Count 113 X10^3/uL (150.0-450.0) L 06/16/21 05:37 Plt Count Comment Decreased (ADEQUATE) 06/16/21 05:37 MPV 7.5 fL (7.4-11.0) 06/16/21 05:37 Neut % (Auto) 92.3 % (42.0-75.0) H 06/16/21 05:37 Lymph % (Auto) 5.3 % (21.0-51.0) L 06/16/21 05:37 Burt % (Auto) 2.3 % (0.0-13.0) 06/16/21 05:37 Eos % (Auto) 0.0 % (0.9-2.9) L 06/16/21 05:37 Baso % (Auto) 0.1 % (0.2-1.0) L 06/16/21 05:37 Neut # (Auto) 12.1 x10^3/uL (2.2-4.8) H 06/16/21 05:37 Lymph # (Auto) 0.7 X10^3/uL (1.3-2.9) L 06/16/21 05:37 Burt # (Auto) 0.3 x10^3/uL (0.3-0.8) 06/16/21 05:37 Eos # (Auto) 0.0 x10^3/uL (0.0-0.2) 06/16/21 05:37 Baso # (Auto) 0.0 X10^3/uL (0.0-0.1) 06/16/21 05:37 Absolute Nucleated RBC 0.1 /100WBC 06/16/21 05:37 Total Counted 100 06/16/21 05:37 Neutrophils % (Manual) 85 % (39-76) H 06/16/21 05:37 Band Neutrophils % 8 % (0-10) 06/16/21 05:37 Lymphocytes % (Manual) 4 % (13-43) L 06/16/21 05:37 Monocytes % (Manual) 2 % (4-9) L 06/16/21 05:37 Metamyelocytes % 1 06/16/21 05:37 Plt Morphology Comment Normal (NORMAL) 06/16/21 05:37 RBC Morphology Normal (NORMAL) 06/16/21 05:37 PT 13.2 SECONDS (11.8-14.3) 06/14/21 10:45 INR Target Range - 06/14/21 10:45 INR 1.05 (0.8-1.3) 06/14/21 10:45 APTT 28.0 SECONDS (22.9-36.5) 06/14/21 10:45 PTT Comment - 06/14/21 10:45 D-Dimer 0.85 ug/ml (0.0-0.57) H* 06/14/21 11:02 Sample Site Rr 06/16/21 08:46 ABG pH 7.450 (7.35-7.45) 06/16/21 08:46 ABG pCO2 42.0 mmHg (35.0-45.0) 06/16/21 08:46 ABG pO2 70.0 mmHg (80.0-100.0) L 06/16/21 08:46 ABG HCO3 29.2 mmol/L (22-26) H 06/16/21 08:46 ABG O2 Saturation 95.0 % (90-100) 06/16/21 08:46 ABG Base Excess 4.7 mmol/L (-2.0-2.0) H 06/16/21 08:46 Hossein Test Pos 06/16/21 08:46 A-a Gradient 498.0 mmHg 06/16/21 08:46 FiO2 87.0 06/16/21 08:46 Blood Gas Comments Pt [email or web address] 06/16/21 08:46 Sodium 142 mmol/L (136-145) 06/16/21 05:37 Corrected Sodium 143 mmol/L (136-145) 06/16/21 05:37 Potassium 4.1 mmol/L (3.5-5.1) 06/16/21 05:37 Chloride 107 mmol/L (98-107) 06/16/21 05:37 Carbon Dioxide 28.5 mmol/L (21-32) 06/16/21 05:37 BUN 22 mg/dL (7-18) H 06/16/21 05:37 Creatinine 0.55 mg/dL (0.70-1.30) L 06/16/21 05:37 Est GFR (MDRD) Af Amer > 60 (>60) 06/16/21 05:37 Est GFR (MDRD) Non-Af > 60 (>60) 06/16/21 05:37 Glucose 159 mg/dL (65-99) H 06/16/21 05:37 Calcium 8.3 mg/dL (8.5-10.1) L 06/16/21 05:37 Corrected Calcium 9.7 mg/dL (8.5-10.1) 06/16/21 05:37 Magnesium 1.8 mg/dL (1.7-2.9) 06/14/21 10:45 Total Bilirubin 0.40 mg/dL (0.2-1.0) 06/16/21 05:37 AST 34 Units/L (15-37) 06/16/21 05:37 ALT 29 Units/L (12-78) 06/16/21 05:37 Alkaline Phosphatase 70 Units/L (46-116) 06/16/21 05:37 Creatine Kinase 36 Units/L (39-308) L 06/14/21 10:45 CK-MB (CK-2) 1.2 ng/mL (0-4.0) 06/14/21 10:45 CK/CKMB % Calc 3.3 % (<4) 06/14/21 10:45 Troponin I High Sens 48.9 ng/L (4.0-60.0) 06/14/21 10:45 C-Reactive Protein 98.20 mg/L (0-3.0) H 06/16/21 05:37 B-Natriuretic Peptide 44.1 pg/mL (0-79) 06/14/21 10:45 Total Protein 5.8 g/dL (6.4-8.2) L 06/16/21 05:37 Albumin 2.3 g/dL (3.4-5.0) L 06/16/21 05:37 Globulin 3.5 g/dL (2.5-4.5) 06/16/21 05:37 Albumin/Globulin Ratio 0.7 Ratio (1.1-2.1) L 06/16/21 05:37 Specimen Type Clean catch urine 06/14/21 13:20 Urine Color Yellow (YELLOW) 06/14/21 13:20 Urine Appearance Clear (CLEAR) 06/14/21 13:20 Urine pH 7.0 (5.0 - 8.0) 06/14/21 13:20 Ur Specific [place] 1.015 (1.000-1.030) 06/14/21 13:20 Urine Protein 1+ (NEGATIVE) 06/14/21 13:20 Urine Glucose (UA) Negative (NEGATIVE) 06/14/21 13:20 Urine Ketones Negative (NEGATIVE) 06/14/21 13:20 Urine Occult Blood Negative (NEGATIVE) 06/14/21 13:20 Urine Nitrite Negative (NEGATIVE) 06/14/21 13:20 Urine Bilirubin Negative (NEGATIVE) 06/14/21 13:20 Urine Urobilinogen 1+ (NORMAL) 06/14/21 13:20 Ur Leukocyte Esterase 1+ (NEGATIVE) 06/14/21 13:20 Urine RBC None seen /HPF (0-3) 06/14/21 13:20 Urine WBC 0-2 /HPF (0-5) 06/14/21 13:20 Ur Squamous Epith Cells Rare /HPF (NEGATIVE) 06/14/21 13:20 Urine Bacteria Negative /HPF (NEGATIVE) 06/14/21 13:20 Ur Culture Indicated? No/not indicated 06/14/21 13:20 SARS-CoV-2 (PCR) Negative (NEGATIVE) 06/14/21 15:17 Influenza Type A (PCR) Negative (NEGATIVE) 06/14/21 15:17 Influenza Type B (PCR) Negative (NEGATIVE) 06/14/21 15:17 RSV (PCR) Negative (NEGATIVE) 06/14/21 15:17 - Plan (1) Pneumonia due to COVID-19 virus Status: Acute Plan: SUPPLEMENTAL OXYGEN, NORMAL SALINE AT 125 ML/HR, LEVAQUIN 500MG IV DAILY, PROVENTIL NEBS Q4H, PULMICORT NEBS BID, SOLU-MEDROL 80MG IV Q8H, CYTOTEC 100MCG PO TID, FLOMAX 0.4MG PO HS, AND RESTORIL 15MG PO HS PRN (2) COPD (chronic obstructive pulmonary disease) Status: Chronic Qualifiers: COPD type: COPD with acute exacerbation Qualified Code(s): J44.1 - Chronic obstructive pulmonary disease with (acute) exacerbation (3) Paroxysmal supraventricular tachycardia Status: Acute (4) Dehydration Status: Acute (5) Hypotension Status: Acute Qualifiers: Hypotension type: unspecified hypotension type Qualified Code(s): I95.9 - Hypotension, unspecified
[2021-06-16] MEDS: FLOMAX PO SCH (21:15)
[2021-06-16] MEDS: RESTORIL CAP 15 MG PO PRN (23:17)
[2021-06-17] MEDS: NS 1,000 ML IV 1,000 ML IV SCH ×5 (00:30→20:25)
[2021-06-17] MEDS: CYTOTEC PO SCH ×2 (05:39→20:25)
[2021-06-17] MEDS: SOLU-Medrol 40 MG VIAL IVP SCH ×3 (05:40→21:37)
[2021-06-17] MEDS: XOPENEX 1.25 MG/3 ML NEBULE NEB SCH ×3 (06:25→17:40)
[2021-06-17 06:32] LABS: BASOPHILS % (AUTO) 0.1 % (0.2-1.0); HEMOGLOBIN 10.7 g/dL (13.5-18.0); LYMPHOCYTES # (AUTO) 0.5 X10^3/uL (1.3-2.9); LYMPHOCYTES % (AUTO) 4.4 % (21.0-51.0); MEAN CORPUSCULAR HEMOGLOBIN 30.8 pg (27.0-34.0); MEAN CORPUSCULAR HGB CONC 33.6 g/dL (33.0-35.0); MEAN CORPUSCULAR VOLUME 91.8 fL (80.0-100.0); MEAN PLATELET VOLUME 7.9 fL (7.4-11.0); MONOCYTES # (AUTO) 0.3 x10^3/uL (0.3-0.8); MONOCYTES % (AUTO) 2.2 % (0.0-13.0); NEUTROPHILS % (AUTO) 93.3 % (42.0-75.0); RED BLOOD COUNT 3.49 X10^6/uL (4.7-6.0); RED CELL DISTRIBUTION WIDTH 18.5 % (11.6-16.5); WHITE BLOOD COUNT 11.8 X10^3/uL (3.6-10.0)
[2021-06-17 06:50] LABS: ALANINE AMINOTRANSFERASE 35 Units/L (12-78); ALBUMIN 2.2 g/dL (3.4-5.0); ALKALINE PHOSPHATASE 81 Units/L (46-116); ASPARTATE AMINO TRANSFERASE 32 Units/L (15-37); BLOOD UREA NITROGEN 34 mg/dL (7-18); CALCIUM 8.2 mg/dL (8.5-10.1); CARBON DIOXIDE 29.7 mmol/L (21-32); CHLORIDE 110 mmol/L (98-107); COR CA(FOR HYPOALB) 9.6 mg/dL (8.5-10.1); COR NA(FOR HYPERGLY) 147 mmol/L (136-145); CREATININE 0.68 mg/dL (0.70-1.30); SODIUM 146 mmol/L (136-145); TOTAL PROTEIN 5.4 g/dL (6.4-8.2); eGFR NON BLACK RACES > 60 (>60)
--- NOTE | 2021-06-17 06:52 | RAD ---
HISTORYSOBSTUDYAP chestCOMPARISONFebruary 2021FINDINGSStable mild cardiomegaly. No change in appearance of the diffuse interstitial and airspace pulmonary densities without additional consolidation, developing pleural effusion or extrapulmonary air.IMPRESSIONNo change since 1 day earlier. The described pulmonary opacities may represent any combination of chronic interstitial fibrosis and/or superimposed inflammatory component.Electronically signed by: AUDIE GARCIA (Jun 17, 2021 06:51:45)
[2021-06-17 07:14] LABS: BAND NEUTROPHILS % 2 % (0-10); PLATELET MORPHOLOGY COMMENT NORMAL (NORMAL)
[2021-06-17] MEDS: LEVAQUIN PREMIX IV 500 MG 500 MG/100 ML BAG IV SCH (08:07)
[2021-06-17] MEDS: PULMICORT NEB TX 0.5 MG NEB SCH ×2 (09:35→20:10)
[2021-06-17] MEDS: ELIQUIS PO SCH ×2 (10:05→20:25)
[2021-06-17] MEDS ORDERED: XOPENEX 1.25 MG/3 ML NEBULE NEB SCH (13:00)
[2021-06-17] MEDS: Atrovent NEB TX 0.02% NEB SCH ×2 (13:06→17:40)
[2021-06-17] MEDS: FLOMAX PO SCH (20:25)
[2021-06-18] MEDS: Atrovent NEB TX 0.02% NEB SCH ×5 (00:05→23:07)
[2021-06-18] MEDS: XOPENEX 1.25 MG/3 ML NEBULE NEB SCH ×5 (00:05→23:07)
[2021-06-18] MEDS: NS 1,000 ML IV 1,000 ML IV SCH ×3 (00:13→17:43)
[2021-06-18] MEDS: RESTORIL CAP 15 MG PO PRN ×2 (00:17→23:45)
[2021-06-18] MEDS ORDERED: TYLENOL 325 MG TAB PO PRN (01:13)
[2021-06-18] MEDS ORDERED: TYLENOL 325 MG TAB PO ONE (01:15)
[2021-06-18] MEDS ORDERED: NORCO 5/325 MG TAB PO PRN (02:46)
[2021-06-18 04:58] LABS: BASOPHILS % (AUTO) 0.2 % (0.2-1.0); HEMATOCRIT 29.4 % (42.0-54.0); LYMPHOCYTES # (AUTO) 0.4 X10^3/uL (1.3-2.9); LYMPHOCYTES % (AUTO) 5.1 % (21.0-51.0); MEAN CORPUSCULAR HEMOGLOBIN 31.3 pg (27.0-34.0); MEAN CORPUSCULAR HGB CONC 34.1 g/dL (33.0-35.0); MEAN CORPUSCULAR VOLUME 91.9 fL (80.0-100.0); MEAN PLATELET VOLUME 7.9 fL (7.4-11.0); MONOCYTES # (AUTO) 0.4 x10^3/uL (0.3-0.8); MONOCYTES % (AUTO) 4.7 % (0.0-13.0); NEUTROPHILS # (AUTO) 7.7 x10^3/uL (2.2-4.8); RED CELL DISTRIBUTION WIDTH 18.3 % (11.6-16.5); WHITE BLOOD COUNT 8.6 X10^3/uL (3.6-10.0)
[2021-06-18 05:11] LABS: ALANINE AMINOTRANSFERASE 40 Units/L (12-78); ALBUMIN 2.1 g/dL (3.4-5.0); ALKALINE PHOSPHATASE 81 Units/L (46-116); ASPARTATE AMINO TRANSFERASE 25 Units/L (15-37); BLOOD UREA NITROGEN 37 mg/dL (7-18); CALCIUM 7.9 mg/dL (8.5-10.1); CARBON DIOXIDE 29.6 mmol/L (21-32); CHLORIDE 110 mmol/L (98-107); COR CA(FOR HYPOALB) 9.4 mg/dL (8.5-10.1); COR NA(FOR HYPERGLY) 148 mmol/L (136-145); CREATININE 0.83 mg/dL (0.70-1.30); SODIUM 147 mmol/L (136-145); TOTAL PROTEIN 4.9 g/dL (6.4-8.2); eGFR NON BLACK RACES > 60 (>60)
[2021-06-18] MEDS: SOLU-Medrol 40 MG VIAL IVP SCH (05:38)
--- NOTE | 2021-06-18 07:39 | RAD ---
HISTORYSOBSTUDYCHEST, 1 [id number]/28/2022.TECHNIQUEAP view of the chestFINDINGSThe cardiac silhouette is stably enlarged. Mediastinal contours appear stable. No significant change in bilateral airspace and interstitial opacities. No definite pleural effusion or pneumothorax. Soft tissue attenuation limits evaluation.IMPRESSIONNo significant change.Electronically signed by: Hardy Ochoa (Jun 18, 2021 07:38:11)
[2021-06-18] MEDS: PULMICORT NEB TX 0.5 MG NEB SCH ×2 (08:45→21:05)
[2021-06-18] MEDS: ELIQUIS PO SCH ×2 (08:47→20:37)
[2021-06-18] MEDS: CYTOTEC PO SCH ×2 (08:47→20:37)
[2021-06-18] MEDS: LEVAQUIN PREMIX IV 500 MG 500 MG/100 ML BAG IV SCH (08:48)
[2021-06-18] MEDS: PREDNISONE TAB 20 MG PO SCH (09:26)
[2021-06-18] MEDS: FLOMAX PO SCH (20:38)
[2021-06-19] MEDS: NS 1,000 ML IV 1,000 ML IV SCH ×2 (01:10→17:40)
[2021-06-19] MEDS: XOPENEX 1.25 MG/3 ML NEBULE NEB SCH ×4 (06:09→23:38)
[2021-06-19] MEDS: Atrovent NEB TX 0.02% NEB SCH ×4 (06:09→23:38)
[2021-06-19 06:48] LABS: BASOPHILS % (AUTO) 0.2 % (0.2-1.0); EOSINOPHILS % (AUTO) 0.4 % (0.9-2.9); HEMOGLOBIN 11.3 g/dL (13.5-18.0); LYMPHOCYTES % (AUTO) 13.3 % (21.0-51.0); MEAN CORPUSCULAR HEMOGLOBIN 31.5 pg (27.0-34.0); MEAN CORPUSCULAR HGB CONC 34.3 g/dL (33.0-35.0); MEAN CORPUSCULAR VOLUME 91.7 fL (80.0-100.0); MEAN PLATELET VOLUME 7.6 fL (7.4-11.0); MONOCYTES # (AUTO) 0.4 x10^3/uL (0.3-0.8); MONOCYTES % (AUTO) 5.3 % (0.0-13.0); NEUTROPHILS # (AUTO) 6.2 x10^3/uL (2.2-4.8); NEUTROPHILS % (AUTO) 80.8 % (42.0-75.0); RED CELL DISTRIBUTION WIDTH 18.3 % (11.6-16.5); WHITE BLOOD COUNT 7.7 X10^3/uL (3.6-10.0)
[2021-06-19 07:12] LABS: ALANINE AMINOTRANSFERASE 42 Units/L (12-78); ALBUMIN 2.3 g/dL (3.4-5.0); ALKALINE PHOSPHATASE 88 Units/L (46-116); ASPARTATE AMINO TRANSFERASE 22 Units/L (15-37); BLOOD UREA NITROGEN 34 mg/dL (7-18); CALCIUM 8.1 mg/dL (8.5-10.1); CARBON DIOXIDE 32.4 mmol/L (21-32); CHLORIDE 112 mmol/L (98-107); COR CA(FOR HYPOALB) 9.5 mg/dL (8.5-10.1); CREATININE 0.63 mg/dL (0.70-1.30); SODIUM 148 mmol/L (136-145); TOTAL PROTEIN 5.3 g/dL (6.4-8.2); eGFR NON BLACK RACES > 60 (>60)
--- NOTE | 2021-06-19 07:18 | RAD ---
HISTORYShortness of breathSTUDYChest AP [id number]/01/2022FINDINGSThe heart remains enlarged and unchanged. No definite congestive heart failure is noted. Diffuse relatively severe interstitial ground-glass and some alveolar infiltrates are unchanged. No pleural effusion or pneumothorax is identified. Bony thorax is unremarkable.IMPRESSIONNo change cardiomegaly without congestive heart failureNo change diffuse bilateral interstitial ground-glass and some alveolar infiltratesElectronically signed by: GABY JASSO (Jun 19, 2021 07:17:24)
[2021-06-19] MEDS: CYTOTEC PO SCH ×2 (08:00→20:04)
[2021-06-19] MEDS: ELIQUIS PO SCH ×2 (08:00→20:04)
[2021-06-19] MEDS: PREDNISONE TAB 20 MG PO SCH (08:00)
[2021-06-19] MEDS: LEVAQUIN PREMIX IV 500 MG 500 MG/100 ML BAG IV SCH (08:18)
[2021-06-19] MEDS: PULMICORT NEB TX 0.5 MG NEB SCH ×2 (08:40→20:50)
[2021-06-19] MEDS ORDERED: ZOFRAN INJ 4 MG VIAL IVP PRN (09:38)
[2021-06-19] MEDS ORDERED: FLEET ENEMA ADULT PR PRN (09:47)
[2021-06-19] MEDS: NS 1/2 1,000 ML IV 1,000 ML IV SCH ×2 (11:00→22:38)
[2021-06-19] MEDS ORDERED: NS 1/2 1,000 ML IV 1,000 ML IV ONE ×2 (12:03→19:50)
[2021-06-19] MEDS ORDERED: COLACE CAP 100 MG PO ONE (19:49)
[2021-06-19] MEDS: FLOMAX PO SCH (20:04)
[2021-06-19] MEDS: COLACE CAP 100 MG PO SCH (20:04)
[2021-06-19] MEDS: MIRALAX POWDER (1 DOSE 17 G) PO SCH (20:11)
[2021-06-19] MEDS: RESTORIL CAP 15 MG PO PRN (22:41)
[2021-06-20] MEDS: Atrovent NEB TX 0.02% NEB SCH ×3 (05:52→16:25)
[2021-06-20] MEDS: XOPENEX 1.25 MG/3 ML NEBULE NEB SCH ×3 (05:52→16:25)
[2021-06-20 06:52] LABS: BASOPHILS # (AUTO) 0.1 X10^3/uL (0.0-0.1); BASOPHILS % (AUTO) 0.7 % (0.2-1.0); EOSINOPHILS # (AUTO) 0.7 x10^3/uL (0.0-0.2); HEMATOCRIT 35.9 % (42.0-54.0); HEMOGLOBIN 12.1 g/dL (13.5-18.0); LYMPHOCYTES # (AUTO) 1.5 X10^3/uL (1.3-2.9); LYMPHOCYTES % (AUTO) 12.6 % (21.0-51.0); MEAN CORPUSCULAR HEMOGLOBIN 30.9 pg (27.0-34.0); MEAN CORPUSCULAR HGB CONC 33.8 g/dL (33.0-35.0); MEAN CORPUSCULAR VOLUME 91.5 fL (80.0-100.0); MEAN PLATELET VOLUME 7.9 fL (7.4-11.0); MONOCYTES # (AUTO) 0.3 x10^3/uL (0.3-0.8); MONOCYTES % (AUTO) 2.5 % (0.0-13.0); NEUTROPHILS # (AUTO) 9.6 x10^3/uL (2.2-4.8); NEUTROPHILS % (AUTO) 78.2 % (42.0-75.0); RED BLOOD COUNT 3.92 X10^6/uL (4.7-6.0); RED CELL DISTRIBUTION WIDTH 18.7 % (11.6-16.5); WHITE BLOOD COUNT 12.3 X10^3/uL (3.6-10.0)
[2021-06-20 07:06] LABS: ALANINE AMINOTRANSFERASE 38 Units/L (12-78); ALBUMIN 2.3 g/dL (3.4-5.0); ALKALINE PHOSPHATASE 113 Units/L (46-116); ASPARTATE AMINO TRANSFERASE 24 Units/L (15-37); BLOOD UREA NITROGEN 18 mg/dL (7-18); CALCIUM 7.7 mg/dL (8.5-10.1); CARBON DIOXIDE 32.6 mmol/L (21-32); CHLORIDE 106 mmol/L (98-107); COR CA(FOR HYPOALB) 9.1 mg/dL (8.5-10.1); CREATININE 0.55 mg/dL (0.70-1.30); MAGNESIUM 1.9 mg/dL (1.7-2.9); SODIUM 143 mmol/L (136-145); TOTAL PROTEIN 5.4 g/dL (6.4-8.2); eGFR NON BLACK RACES > 60 (>60)
[2021-06-20 07:34] LABS: ANISOCYTOSIS SLIGHT; PLATELET MORPHOLOGY COMMENT NORMAL (NORMAL)
[2021-06-20] MEDS: PULMICORT NEB TX 0.5 MG NEB SCH ×2 (08:59→20:35)
[2021-06-20] MEDS: DECADRON TAB PO SCH (09:01)
[2021-06-20] MEDS: CYTOTEC PO SCH ×2 (09:01→20:29)
[2021-06-20] MEDS: ELIQUIS PO SCH ×2 (09:02→20:29)
[2021-06-20] MEDS: LEVAQUIN PREMIX IV 500 MG 500 MG/100 ML BAG IV SCH (09:02)
[2021-06-20] MEDS: DIFLUCAN PO SCH (09:05)
[2021-06-20] MEDS ORDERED: DULCOLAX SUPPOSITORY 10 MG RECTAL PRN (09:12)
[2021-06-20] MEDS: NS 1/2 1,000 ML IV 1,000 ML IV SCH ×2 (16:24→16:30)
[2021-06-20] MEDS ORDERED: NS 1/2 1,000 ML IV 1,000 ML IV ONE (16:25)
[2021-06-20] MEDS ORDERED: MICRO K EXTEN CAP 10 MEQ PO PRN (18:17)
[2021-06-20] MEDS ORDERED: K-RIDER 10 MEQ/NS 100 ML 10 MEQ/100 ML BAG IV PRN (18:17)
[2021-06-20] MEDS ORDERED: POTASSIUM CHL 40 MEQ/NS 0.45% 500 ML IV PRN (18:17)
[2021-06-20] MEDS ORDERED: POTASSIUM CHL 60 MEQ/NS 0.45% 500 ML IV PRN (18:17)
[2021-06-20] MEDS ORDERED: KLOR-CON PO PRN (18:17)
[2021-06-20] MEDS ORDERED: POTASSIUM CHLORIDE LIQ 20 MEQ UDC PO PRN (18:17)
[2021-06-20] MEDS: MAGNESIUM SULFATE 1 GRAM/100 mL PREMIX 1 G/100 ML BAG IV PRN ×2 (20:26→21:30)
[2021-06-20] MEDS: K-DUR TAB 20 MEQ PO PRN (20:27)
[2021-06-20] MEDS: FLOMAX PO SCH (20:29)
[2021-06-20] MEDS: COLACE CAP 100 MG PO SCH (20:29)
[2021-06-20] MEDS: MIRALAX POWDER (1 DOSE 17 G) PO SCH (21:22)
[2021-06-21] MEDS: XOPENEX 1.25 MG/3 ML NEBULE NEB SCH ×5 (00:21→16:15)
[2021-06-21] MEDS: Atrovent NEB TX 0.02% NEB SCH ×5 (00:21→16:15)
[2021-06-21] MEDS ORDERED: NS 1/2 1,000 ML IV 1,000 ML IV ONE (00:48)
[2021-06-21] MEDS: NS 1/2 1,000 ML IV 1,000 ML IV SCH (00:52)
[2021-06-21] MEDS: RESTORIL CAP 15 MG PO PRN (01:32)
[2021-06-21 07:13] LABS: ALANINE AMINOTRANSFERASE 32 Units/L (12-78); ALBUMIN 2.2 g/dL (3.4-5.0); ALKALINE PHOSPHATASE 104 Units/L (46-116); ASPARTATE AMINO TRANSFERASE 24 Units/L (15-37); BLOOD UREA NITROGEN 13 mg/dL (7-18); CALCIUM 7.9 mg/dL (8.5-10.1); CARBON DIOXIDE 37.1 mmol/L (21-32); CHLORIDE 103 mmol/L (98-107); COR CA(FOR HYPOALB) 9.3 mg/dL (8.5-10.1); COR NA(FOR HYPERGLY) 143 mmol/L (136-145); CREATININE 0.56 mg/dL (0.70-1.30); MAGNESIUM 2.3 mg/dL (1.7-2.9); SODIUM 142 mmol/L (136-145); TOTAL PROTEIN 5.2 g/dL (6.4-8.2); eGFR NON BLACK RACES > 60 (>60)
[2021-06-21 07:33] LABS: BASOPHILS % (AUTO) 0.5 % (0.2-1.0); EOSINOPHILS % (AUTO) 0.2 % (0.9-2.9); HEMATOCRIT 33.4 % (42.0-54.0); HEMOGLOBIN 11.3 g/dL (13.5-18.0); LYMPHOCYTES # (AUTO) 0.6 X10^3/uL (1.3-2.9); LYMPHOCYTES % (AUTO) 8.9 % (21.0-51.0); MEAN CORPUSCULAR HEMOGLOBIN 31.2 pg (27.0-34.0); MEAN CORPUSCULAR HGB CONC 33.9 g/dL (33.0-35.0); MEAN PLATELET VOLUME 8.2 fL (7.4-11.0); MONOCYTES # (AUTO) 0.2 x10^3/uL (0.3-0.8); MONOCYTES % (AUTO) 2.8 % (0.0-13.0); NEUTROPHILS # (AUTO) 5.5 x10^3/uL (2.2-4.8); NEUTROPHILS % (AUTO) 87.6 % (42.0-75.0); RED BLOOD COUNT 3.63 X10^6/uL (4.7-6.0); RED CELL DISTRIBUTION WIDTH 18.4 % (11.6-16.5); WHITE BLOOD COUNT 6.3 X10^3/uL (3.6-10.0)
[2021-06-21 08:12] LABS: PLATELET MORPHOLOGY COMMENT NORMAL (NORMAL)
[2021-06-21] MEDS: DIFLUCAN PO SCH (08:12)
[2021-06-21] MEDS: CYTOTEC PO SCH ×2 (08:12→21:09)
[2021-06-21] MEDS: DECADRON TAB PO SCH (08:12)
[2021-06-21] MEDS: LEVAQUIN PREMIX IV 500 MG 500 MG/100 ML BAG IV SCH (08:13)
[2021-06-21] MEDS: ELIQUIS PO SCH ×2 (08:14→21:13)
[2021-06-21] MEDS: PULMICORT NEB TX 0.5 MG NEB SCH ×2 (08:46→21:19)
--- NOTE | 2021-06-21 10:31 | RAD ---
HISTORYHypoxiaSTUDYChest AP [id number]/02/2022FINDINGSThe heart remains enlarged and unchanged from the prior examination. No definite congestive heart failure is identified. Diffuse severe bilateral interstitial ground-glass and some alveolar infiltrates are unchanged in degree or distribution from the prior examination. A small left pleural effusion may be present. No pneumothorax is identified. Bony thorax is unremarkable.IMPRESSIONSevere diffuse bilateral interstitial, ground-glass, and some alveolar infiltrates unchanged from the prior examinationSuspect small left pleural effusionElectronically signed by: GABY JASSO (Jun 21, 2021 10:30:03)
[2021-06-21] MEDS ORDERED: VIBRAMYCIN IV ONE (10:36)
[2021-06-21] MEDS: VIBRAMYCIN 100 MG in D5W 250 ML IV 250 ML IV SCH ×2 (11:00→21:10)
[2021-06-21] MEDS ORDERED: NS 1,000 ML IV 1,000 ML IV NR (11:00)
[2021-06-21] MEDS ORDERED: ADVIL TAB 200 MG PO NR (11:30)
[2021-06-21] MEDS ORDERED: BENADRYL CAP/TAB 25 MG PO NR (11:30)
[2021-06-21 11:45] VITALS: BMI 30.7
[2021-06-21] MEDS ORDERED: AMBISOME 300 MG in D5W 250 ML IV 250 ML IV NR (12:00)
[2021-06-21] MEDS: NS 1,000 ML IV 1,000 ML IV SCH ×2 (16:16→16:17)
[2021-06-21] MEDS: COLACE CAP 100 MG PO SCH (21:09)
[2021-06-21] MEDS: MIRALAX POWDER (1 DOSE 17 G) PO SCH (21:10)
[2021-06-21] MEDS: FLOMAX PO SCH (21:10)
[2021-06-22] MEDS: XOPENEX 1.25 MG/3 ML NEBULE NEB SCH ×4 (00:25→17:52)
[2021-06-22] MEDS: Atrovent NEB TX 0.02% NEB SCH ×4 (00:25→17:52)
[2021-06-22] MEDS: NS 1,000 ML IV 1,000 ML IV SCH ×3 (00:35→14:42)
[2021-06-22] MEDS: RESTORIL CAP 15 MG PO PRN ×2 (01:09→23:54)
[2021-06-22 05:17] LABS: BASOPHILS % (AUTO) 0.1 % (0.2-1.0); EOSINOPHILS % (AUTO) 0.2 % (0.9-2.9); HEMOGLOBIN 10.6 g/dL (13.5-18.0); LYMPHOCYTES # (AUTO) 0.5 X10^3/uL (1.3-2.9); LYMPHOCYTES % (AUTO) 5.4 % (21.0-51.0); MEAN CORPUSCULAR HEMOGLOBIN 31.3 pg (27.0-34.0); MEAN CORPUSCULAR HGB CONC 34.3 g/dL (33.0-35.0); MEAN CORPUSCULAR VOLUME 91.2 fL (80.0-100.0); MEAN PLATELET VOLUME 8.1 fL (7.4-11.0); MONOCYTES # (AUTO) 0.4 x10^3/uL (0.3-0.8); MONOCYTES % (AUTO) 4.8 % (0.0-13.0); NEUTROPHILS # (AUTO) 7.8 x10^3/uL (2.2-4.8); NEUTROPHILS % (AUTO) 89.5 % (42.0-75.0); RED CELL DISTRIBUTION WIDTH 18.3 % (11.6-16.5); WHITE BLOOD COUNT 8.8 X10^3/uL (3.6-10.0)
[2021-06-22 05:36] LABS: ALANINE AMINOTRANSFERASE 32 Units/L (12-78); ALBUMIN 2.1 g/dL (3.4-5.0); ALKALINE PHOSPHATASE 110 Units/L (46-116); ASPARTATE AMINO TRANSFERASE 24 Units/L (15-37); BLOOD UREA NITROGEN 19 mg/dL (7-18); CALCIUM 7.8 mg/dL (8.5-10.1); CARBON DIOXIDE 35.1 mmol/L (21-32); CHLORIDE 107 mmol/L (98-107); COR CA(FOR HYPOALB) 9.3 mg/dL (8.5-10.1); COR NA(FOR HYPERGLY) 145 mmol/L (136-145); CREATININE 0.63 mg/dL (0.70-1.30); SODIUM 144 mmol/L (136-145); TOTAL PROTEIN 4.8 g/dL (6.4-8.2); eGFR NON BLACK RACES > 60 (>60)
[2021-06-22] MEDS: PULMICORT NEB TX 0.5 MG NEB SCH ×2 (09:11→20:00)
[2021-06-22] MEDS: ADVIL TAB 200 MG PO SCH (09:15)
[2021-06-22] MEDS: FLOMAX PO SCH ×2 (09:28→21:02)
[2021-06-22] MEDS: ELIQUIS PO SCH ×2 (09:28→21:02)
[2021-06-22] MEDS: CYTOTEC PO SCH ×2 (09:28→21:02)
[2021-06-22] MEDS: K-DUR TAB 20 MEQ PO PRN (09:29)
[2021-06-22] MEDS: DECADRON TAB PO SCH (09:29)
[2021-06-22] MEDS ORDERED: MOTRIN TAB 800 MG PO ONE (10:09)
[2021-06-22] MEDS: BENADRYL CAP/TAB 25 MG PO SCH (10:17)
[2021-06-22] MEDS: AMBISOME 300 MG in D5W 250 ML IV 250 ML IV SCH (11:00)
[2021-06-22] MEDS: VIBRAMYCIN 100 MG in D5W 250 ML IV 250 ML IV SCH ×2 (14:43→21:04)
--- NOTE | 2021-06-22 15:29 | RAD ---
HISTORYshortness of breath hx: HTN, COPD.br NoneSTUDYCHEST, 1 VIEWCOMPARISONChest x-ray dated June 21, 2021.FINDINGSThe trachea is midline. The cardiac silhouette is unchanged. No significant change in lung aeration. Suggestion of small bilateral pleural effusions. No obvious pneumothorax. The bony thorax is unremarkable.IMPRESSIONNo significant change.Electronically signed by: RAMOS SIFUENTES (Jun 22, 2021 15:27:59)
[2021-06-22] MEDS ORDERED: VIBRAMYCIN IV ONE (20:47)
[2021-06-22] MEDS: COLACE CAP 100 MG PO SCH (21:03)
[2021-06-22] MEDS: MIRALAX POWDER (1 DOSE 17 G) PO SCH (21:03)
[2021-06-23] MEDS: NS 1,000 ML IV 1,000 ML IV SCH ×4 (01:00→14:19)
[2021-06-23] MEDS: Atrovent NEB TX 0.02% NEB SCH ×4 (05:06→18:00)
[2021-06-23] MEDS: XOPENEX 1.25 MG/3 ML NEBULE NEB SCH ×4 (05:06→18:00)
[2021-06-23 05:32] LABS: BASOPHILS % (AUTO) 0.4 % (0.2-1.0); EOSINOPHILS # (AUTO) 0.1 x10^3/uL (0.0-0.2); EOSINOPHILS % (AUTO) 1.5 % (0.9-2.9); HEMATOCRIT 30.8 % (42.0-54.0); HEMOGLOBIN 10.6 g/dL (13.5-18.0); LYMPHOCYTES # (AUTO) 0.5 X10^3/uL (1.3-2.9); LYMPHOCYTES % (AUTO) 5.9 % (21.0-51.0); MEAN CORPUSCULAR HEMOGLOBIN 31.4 pg (27.0-34.0); MEAN CORPUSCULAR HGB CONC 34.3 g/dL (33.0-35.0); MEAN CORPUSCULAR VOLUME 91.7 fL (80.0-100.0); MEAN PLATELET VOLUME 7.9 fL (7.4-11.0); MONOCYTES # (AUTO) 0.4 x10^3/uL (0.3-0.8); MONOCYTES % (AUTO) 4.7 % (0.0-13.0); NEUTROPHILS # (AUTO) 7.2 x10^3/uL (2.2-4.8); NEUTROPHILS % (AUTO) 87.5 % (42.0-75.0); RED BLOOD COUNT 3.36 X10^6/uL (4.7-6.0); RED CELL DISTRIBUTION WIDTH 18.9 % (11.6-16.5); WHITE BLOOD COUNT 8.3 X10^3/uL (3.6-10.0)
[2021-06-23 05:48] LABS: ALANINE AMINOTRANSFERASE 41 Units/L (12-78); ALBUMIN 2.1 g/dL (3.4-5.0); ALKALINE PHOSPHATASE 128 Units/L (46-116); ASPARTATE AMINO TRANSFERASE 27 Units/L (15-37); BLOOD UREA NITROGEN 19 mg/dL (7-18); CALCIUM 7.6 mg/dL (8.5-10.1); CARBON DIOXIDE 37.1 mmol/L (21-32); CHLORIDE 106 mmol/L (98-107); COR CA(FOR HYPOALB) 9.1 mg/dL (8.5-10.1); CREATININE 0.59 mg/dL (0.70-1.30); SODIUM 145 mmol/L (136-145); TOTAL PROTEIN 4.8 g/dL (6.4-8.2); eGFR NON BLACK RACES > 60 (>60)
[2021-06-23] MEDS: DECADRON TAB PO SCH (08:17)
[2021-06-23] MEDS: FLOMAX PO SCH ×2 (08:17→21:22)
[2021-06-23] MEDS: ELIQUIS PO SCH ×2 (08:18→21:22)
[2021-06-23] MEDS: CYTOTEC PO SCH ×2 (08:18→21:22)
[2021-06-23] MEDS: VIBRAMYCIN 100 MG in D5W 250 ML IV 250 ML IV SCH ×2 (08:19→21:22)
[2021-06-23] MEDS: PULMICORT NEB TX 0.5 MG NEB SCH ×2 (09:30→21:19)
[2021-06-23] MEDS: ADVIL TAB 200 MG PO SCH (10:55)
[2021-06-23] MEDS: BENADRYL CAP/TAB 25 MG PO SCH (10:56)
[2021-06-23] MEDS: AMBISOME 300 MG in D5W 250 ML IV 250 ML IV SCH (11:28)
[2021-06-23] MEDS ORDERED: VIBRAMYCIN IV ONE (21:00)
[2021-06-23] MEDS: COLACE CAP 100 MG PO SCH (21:22)
[2021-06-23] MEDS: MIRALAX POWDER (1 DOSE 17 G) PO SCH (21:23)
[2021-06-24] MEDS: XOPENEX 1.25 MG/3 ML NEBULE NEB SCH ×3 (00:45→18:20)
[2021-06-24] MEDS: Atrovent NEB TX 0.02% NEB SCH ×3 (00:45→18:20)
[2021-06-24] MEDS: RESTORIL CAP 15 MG PO PRN ×2 (00:48→20:32)
[2021-06-24] MEDS: NS 1,000 ML IV 1,000 ML IV SCH ×4 (03:00→18:54)
[2021-06-24 04:35] LABS: BASOPHILS # (AUTO) 0.1 X10^3/uL (0.0-0.1); BASOPHILS % (AUTO) 0.8 % (0.2-1.0); EOSINOPHILS # (AUTO) 0.3 x10^3/uL (0.0-0.2); EOSINOPHILS % (AUTO) 2.8 % (0.9-2.9); HEMATOCRIT 33.8 % (42.0-54.0); HEMOGLOBIN 11.4 g/dL (13.5-18.0); LYMPHOCYTES # (AUTO) 0.7 X10^3/uL (1.3-2.9); LYMPHOCYTES % (AUTO) 6.9 % (21.0-51.0); MEAN CORPUSCULAR HEMOGLOBIN 30.9 pg (27.0-34.0); MEAN CORPUSCULAR HGB CONC 33.8 g/dL (33.0-35.0); MEAN CORPUSCULAR VOLUME 91.6 fL (80.0-100.0); MEAN PLATELET VOLUME 8.1 fL (7.4-11.0); MONOCYTES # (AUTO) 0.5 x10^3/uL (0.3-0.8); MONOCYTES % (AUTO) 5.1 % (0.0-13.0); NEUTROPHILS # (AUTO) 9.1 x10^3/uL (2.2-4.8); NEUTROPHILS % (AUTO) 84.4 % (42.0-75.0); RED BLOOD COUNT 3.69 X10^6/uL (4.7-6.0); RED CELL DISTRIBUTION WIDTH 18.7 % (11.6-16.5); WHITE BLOOD COUNT 10.8 X10^3/uL (3.6-10.0)
[2021-06-24 04:46] LABS: ALANINE AMINOTRANSFERASE 41 Units/L (12-78); ALBUMIN 2.5 g/dL (3.4-5.0); ALKALINE PHOSPHATASE 154 Units/L (46-116); ASPARTATE AMINO TRANSFERASE 27 Units/L (15-37); BLOOD UREA NITROGEN 19 mg/dL (7-18); CALCIUM 7.8 mg/dL (8.5-10.1); CARBON DIOXIDE 37.6 mmol/L (21-32); CHLORIDE 102 mmol/L (98-107); COR NA(FOR HYPERGLY) 143 mmol/L (136-145); CREATININE 0.59 mg/dL (0.70-1.30); SODIUM 143 mmol/L (136-145); TOTAL PROTEIN 5.3 g/dL (6.4-8.2); eGFR NON BLACK RACES > 60 (>60)
--- NOTE | 2021-06-24 05:29 | RAD ---
PROCEDURE: Chest X-ray 1 View .HISTORY: PNEUMONIA, HYPOXIA .TECHNIQUE: AP view .COMPARISON: 06/22/2021.TECHNICAL QUALITY: Satisfactory .FINDINGS:Heart size upper limits of normal and unchanged.Normal central vascularity.Moderate consolidation both lung bases that is slightly increased since previous study. Possible left pleural effusion that is unchanged. No pneumothorax.IMPRESSION:1. Increase pneumonia at the bases.2. Unchanged left pleural effusion.Electronically signed by: Brody Cheng (Jun 24, 2021 05:28:06)
[2021-06-24] MEDS: K-DUR TAB 20 MEQ PO PRN (05:58)
[2021-06-24] MEDS: PULMICORT NEB TX 0.5 MG NEB SCH ×2 (09:13→20:00)
[2021-06-24] MEDS: ZOSYN VIAL 3.375 GRAMS 3.375 G in NS 100 ML IV 100 ML IV SCH ×3 (09:40→23:00)
[2021-06-24] MEDS: CYTOTEC PO SCH ×2 (09:43→20:33)
[2021-06-24] MEDS: ELIQUIS PO SCH ×2 (09:43→20:32)
[2021-06-24] MEDS: VIBRAMYCIN 100 MG in D5W 250 ML IV 250 ML IV SCH ×2 (09:44→20:33)
[2021-06-24] MEDS: FLOMAX PO SCH ×2 (09:44→20:32)
[2021-06-24] MEDS: SOLU-Medrol 40 MG VIAL IVP SCH ×4 (09:44→21:05)
[2021-06-24] MEDS: Atrovent NEB TX 0.02% NEB PRN (20:00)
[2021-06-24] MEDS: COLACE CAP 100 MG PO SCH (20:32)
[2021-06-24] MEDS: MIRALAX POWDER (1 DOSE 17 G) PO SCH (20:33)
[2021-06-25] MEDS: Atrovent NEB TX 0.02% NEB SCH ×4 (00:48→16:26)
[2021-06-25] MEDS: XOPENEX 1.25 MG/3 ML NEBULE NEB SCH ×4 (00:48→16:26)
[2021-06-25] MEDS: SOLU-Medrol 40 MG VIAL IVP SCH ×4 (02:50→20:25)
[2021-06-25 05:22] LABS: LYMPHOCYTES # (AUTO) 0.2 X10^3/uL (1.3-2.9); LYMPHOCYTES % (AUTO) 2.1 % (21.0-51.0); NEUTROPHILS # (AUTO) 8.5 x10^3/uL (2.2-4.8)
[2021-06-25] MEDS ORDERED: MORPHINE SULFATE INJ 2 MG INJ IVP ONE (05:24)
[2021-06-25 05:25] LABS: BASOPHILS % (AUTO) 0.5 % (0.2-1.0); EOSINOPHILS % (AUTO) 0.1 % (0.9-2.9); HEMATOCRIT 30.6 % (42.0-54.0); HEMOGLOBIN 10.7 g/dL (13.5-18.0); MEAN CORPUSCULAR HEMOGLOBIN 31.9 pg (27.0-34.0); MEAN CORPUSCULAR HGB CONC 34.9 g/dL (33.0-35.0); MEAN CORPUSCULAR VOLUME 91.6 fL (80.0-100.0); MEAN PLATELET VOLUME 8.3 fL (7.4-11.0); MONOCYTES # (AUTO) 0.2 x10^3/uL (0.3-0.8); MONOCYTES % (AUTO) 2.6 % (0.0-13.0); NEUTROPHILS % (AUTO) 94.7 % (42.0-75.0); RED BLOOD COUNT 3.34 X10^6/uL (4.7-6.0); RED CELL DISTRIBUTION WIDTH 18.9 % (11.6-16.5)
[2021-06-25] MEDS ORDERED: MORPHINE SULFATE INJ 2 MG INJ ONE (05:26)
[2021-06-25 05:33] LABS: ALANINE AMINOTRANSFERASE 33 Units/L (12-78); ALBUMIN 2.2 g/dL (3.4-5.0); ALKALINE PHOSPHATASE 139 Units/L (46-116); ASPARTATE AMINO TRANSFERASE 35 Units/L (15-37); BLOOD UREA NITROGEN 16 mg/dL (7-18); CALCIUM 7.9 mg/dL (8.5-10.1); CARBON DIOXIDE 36.9 mmol/L (21-32); CHLORIDE 103 mmol/L (98-107); COR CA(FOR HYPOALB) 9.3 mg/dL (8.5-10.1); COR NA(FOR HYPERGLY) 143 mmol/L (136-145); CREATININE 0.49 mg/dL (0.70-1.30); SODIUM 142 mmol/L (136-145); TOTAL PROTEIN 5.1 g/dL (6.4-8.2); eGFR NON BLACK RACES > 60 (>60)
[2021-06-25] MEDS: NS 1,000 ML IV 1,000 ML IV SCH ×2 (05:33→18:33)
[2021-06-25] MEDS: ZOSYN VIAL 3.375 GRAMS 3.375 G in NS 100 ML IV 100 ML IV SCH ×3 (05:34→23:00)
[2021-06-25 05:48] LABS: ANISOCYTOSIS SLIGHT; BAND NEUTROPHILS % 2 % (0-10); PLATELET MORPHOLOGY COMMENT NORMAL (NORMAL)
[2021-06-25 05:56] LABS: SCHISTOCYTES PRESENT
[2021-06-25] MEDS ORDERED: ERAXIS 200 MG in NS 250 ML IV 200 ML IV NR (08:00)
[2021-06-25] MEDS: PULMICORT NEB TX 0.5 MG NEB SCH (08:50)
[2021-06-25] MEDS: Atrovent NEB TX 0.02% NEB PRN ×3 (08:50→20:00)
[2021-06-25] MEDS ORDERED: ZYVOX 600MG IV 600 MG/300 ML BAG IV SCH (09:00)
[2021-06-25] MEDS: VIBRAMYCIN 100 MG in D5W 250 ML IV 250 ML IV SCH ×2 (09:19→20:27)
[2021-06-25] MEDS: ELIQUIS PO SCH ×2 (09:19→20:19)
[2021-06-25] MEDS: FLOMAX PO SCH ×2 (09:19→20:19)
[2021-06-25] MEDS: CYTOTEC PO SCH ×2 (09:19→20:19)
[2021-06-25] MEDS: VORICONAZOLE 600 MG in NS 250 ML IV 250 ML IV SCH (14:19)
[2021-06-25] MEDS: MORPHINE SULFATE INJ 2 MG INJ IVP PRN (14:22)
[2021-06-25] MEDS: COLACE CAP 100 MG PO SCH (20:19)
[2021-06-25] MEDS: ZYVOX 600MG IV 600 MG/300 ML BAG IV SCH (20:27)
[2021-06-25] MEDS: MIRALAX POWDER (1 DOSE 17 G) PO SCH (21:17)
[2021-06-25] MEDS: RESTORIL CAP 15 MG PO PRN (22:06)
[2021-06-26] MEDS: XOPENEX 1.25 MG/3 ML NEBULE NEB SCH ×3 (00:18→12:00)
[2021-06-26] MEDS: Atrovent NEB TX 0.02% NEB SCH ×3 (00:18→12:00)
[2021-06-26] MEDS: VORICONAZOLE 600 MG in NS 250 ML IV 250 ML IV SCH (01:00)
[2021-06-26] MEDS: SOLU-Medrol 40 MG VIAL IVP SCH ×3 (02:50→17:12)
--- NOTE | 2021-06-26 05:38 | RAD ---
PROCEDURE: Chest X-ray 1 View .HISTORY: PNEUMONIA .TECHNIQUE: AP view .COMPARISON: 06/24/2020.TECHNICAL QUALITY: Satisfactory .FINDINGS:Unchanged start size upper limits of normal.Normal central vascularity.Moderate consolidation both lung chandler similar to previous study with no pleural fluid or pneumothorax.IMPRESSION:Unchanged moderate bilateral pneumonia.Electronically signed by: Brody Cheng (Jun 26, 2021 05:36:40)
[2021-06-26] MEDS: ZOSYN VIAL 3.375 GRAMS 3.375 G in NS 100 ML IV 100 ML IV SCH ×3 (06:01→21:29)
[2021-06-26] MEDS: NS 1,000 ML IV 1,000 ML IV SCH ×5 (06:10→21:55)
[2021-06-26 06:50] LABS: BASOPHILS % (AUTO) 0.1 % (0.2-1.0); HEMATOCRIT 28.8 % (42.0-54.0); HEMOGLOBIN 9.9 g/dL (13.5-18.0); LYMPHOCYTES # (AUTO) 0.1 X10^3/uL (1.3-2.9); MEAN CORPUSCULAR HEMOGLOBIN 31.5 pg (27.0-34.0); MEAN CORPUSCULAR HGB CONC 34.5 g/dL (33.0-35.0); MEAN CORPUSCULAR VOLUME 91.2 fL (80.0-100.0); MEAN PLATELET VOLUME 8.2 fL (7.4-11.0); MONOCYTES # (AUTO) 0.3 x10^3/uL (0.3-0.8); MONOCYTES % (AUTO) 2.5 % (0.0-13.0); NEUTROPHILS # (AUTO) 10.4 x10^3/uL (2.2-4.8); NEUTROPHILS % (AUTO) 96.4 % (42.0-75.0); RED BLOOD COUNT 3.16 X10^6/uL (4.7-6.0); RED CELL DISTRIBUTION WIDTH 18.3 % (11.6-16.5); WHITE BLOOD COUNT 10.8 X10^3/uL (3.6-10.0)
[2021-06-26 07:08] LABS: ALANINE AMINOTRANSFERASE 29 Units/L (12-78); ALBUMIN 2.3 g/dL (3.4-5.0); ALKALINE PHOSPHATASE 150 Units/L (46-116); ASPARTATE AMINO TRANSFERASE 18 Units/L (15-37); BLOOD UREA NITROGEN 24 mg/dL (7-18); CALCIUM 7.9 mg/dL (8.5-10.1); CARBON DIOXIDE 38.1 mmol/L (21-32); CHLORIDE 104 mmol/L (98-107); COR CA(FOR HYPOALB) 9.3 mg/dL (8.5-10.1); COR NA(FOR HYPERGLY) 144 mmol/L (136-145); CREATININE 0.58 mg/dL (0.70-1.30); SODIUM 143 mmol/L (136-145); eGFR NON BLACK RACES > 60 (>60)
[2021-06-26 07:25] LABS: ANISOCYTOSIS SLIGHT; BAND NEUTROPHILS % 3 % (0-10); PLATELET MORPHOLOGY COMMENT NORMAL (NORMAL)
[2021-06-26] MEDS: Atrovent NEB TX 0.02% NEB PRN ×3 (08:05→20:25)
[2021-06-26] MEDS: VIBRAMYCIN 100 MG in D5W 250 ML IV 250 ML IV SCH ×2 (08:42→21:28)
[2021-06-26] MEDS: ALBUMIN HUMAN 25%- 100 ML 100 ML IV SCH (08:43)
[2021-06-26] MEDS: ZYVOX 600MG IV 600 MG/300 ML BAG IV SCH ×2 (08:44→21:30)
[2021-06-26] MEDS: ELIQUIS PO SCH ×2 (08:45→21:26)
[2021-06-26] MEDS: FLOMAX PO SCH ×2 (08:45→21:27)
[2021-06-26] MEDS: CYTOTEC PO SCH ×2 (08:46→21:27)
[2021-06-26] MEDS: MORPHINE SULFATE INJ 2 MG INJ IVP PRN ×2 (09:09→21:28)
[2021-06-26] MEDS: ERAXIS 100 MG in NS 100 ML IV 100 ML IV SCH (10:22)
[2021-06-26] MEDS: VORICONAZOLE 400 MG in NS 100 ML IV 100 ML IV SCH (12:39)
[2021-06-26] MEDS: RESTORIL CAP 15 MG PO PRN (21:26)
[2021-06-26] MEDS: COLACE CAP 100 MG PO SCH (21:26)
[2021-06-26] MEDS: MIRALAX POWDER (1 DOSE 17 G) PO SCH (21:54)
[2021-06-27] MEDS: XOPENEX 1.25 MG/3 ML NEBULE NEB SCH ×4 (00:35→17:26)
[2021-06-27] MEDS: Atrovent NEB TX 0.02% NEB SCH ×4 (00:35→17:25)
[2021-06-27] MEDS: NS 1,000 ML IV 1,000 ML IV SCH ×2 (01:00→15:00)
[2021-06-27] MEDS: SOLU-Medrol 40 MG VIAL IVP SCH ×3 (01:21→17:21)
[2021-06-27] MEDS: VORICONAZOLE 400 MG in NS 100 ML IV 100 ML IV SCH ×2 (01:21→12:47)
[2021-06-27 05:53] LABS: BASOPHILS % (AUTO) 0.1 % (0.2-1.0); HEMATOCRIT 28.2 % (42.0-54.0); HEMOGLOBIN 9.5 g/dL (13.5-18.0); LYMPHOCYTES # (AUTO) 0.1 X10^3/uL (1.3-2.9); LYMPHOCYTES % (AUTO) 0.7 % (21.0-51.0); MEAN CORPUSCULAR HEMOGLOBIN 31.1 pg (27.0-34.0); MEAN CORPUSCULAR HGB CONC 33.5 g/dL (33.0-35.0); MEAN CORPUSCULAR VOLUME 92.9 fL (80.0-100.0); MEAN PLATELET VOLUME 8.1 fL (7.4-11.0); MONOCYTES # (AUTO) 0.4 x10^3/uL (0.3-0.8); MONOCYTES % (AUTO) 2.6 % (0.0-13.0); NEUTROPHILS # (AUTO) 13.3 x10^3/uL (2.2-4.8); NEUTROPHILS % (AUTO) 96.6 % (42.0-75.0); RED BLOOD COUNT 3.04 X10^6/uL (4.7-6.0); RED CELL DISTRIBUTION WIDTH 18.5 % (11.6-16.5); WHITE BLOOD COUNT 13.8 X10^3/uL (3.6-10.0)
[2021-06-27 06:01] LABS: ALANINE AMINOTRANSFERASE 30 Units/L (12-78); ALBUMIN 2.5 g/dL (3.4-5.0); ALKALINE PHOSPHATASE 156 Units/L (46-116); ASPARTATE AMINO TRANSFERASE 24 Units/L (15-37); BLOOD UREA NITROGEN 30 mg/dL (7-18); CALCIUM 7.8 mg/dL (8.5-10.1); CARBON DIOXIDE 39.4 mmol/L (21-32); CHLORIDE 106 mmol/L (98-107); COR NA(FOR HYPERGLY) 146 mmol/L (136-145); CREATININE 0.64 mg/dL (0.70-1.30); SODIUM 145 mmol/L (136-145); eGFR NON BLACK RACES > 60 (>60)
[2021-06-27] MEDS: ZOSYN VIAL 3.375 GRAMS 3.375 G in NS 100 ML IV 100 ML IV SCH ×3 (06:22→22:09)
[2021-06-27 06:39] LABS: ANISOCYTOSIS SLIGHT; BAND NEUTROPHILS % 6 % (0-10); PLATELET MORPHOLOGY COMMENT NORMAL (NORMAL)
[2021-06-27] MEDS: ALBUMIN HUMAN 25%- 100 ML 100 ML IV SCH (08:25)
[2021-06-27] MEDS: ELIQUIS PO SCH ×2 (08:26→22:08)
[2021-06-27] MEDS: FLOMAX PO SCH ×2 (08:26→22:08)
[2021-06-27] MEDS: CYTOTEC PO SCH ×2 (08:26→22:09)
[2021-06-27] MEDS: ERAXIS 100 MG in NS 100 ML IV 100 ML IV SCH (09:06)
[2021-06-27] MEDS: VIBRAMYCIN 100 MG in D5W 250 ML IV 250 ML IV SCH ×2 (09:34→22:09)
[2021-06-27] MEDS: ZYVOX 600MG IV 600 MG/300 ML BAG IV SCH ×2 (09:34→22:11)
[2021-06-27] MEDS: MORPHINE SULFATE INJ 2 MG INJ IVP PRN ×6 (10:16→22:04)
[2021-06-27] MEDS ORDERED: NS 500 ML IV 500 ML IV ONE (10:41)
[2021-06-27] MEDS ORDERED: MORPHINE SULFATE INJ 2 MG INJ ONE (13:09)
--- NOTE | 2021-06-27 14:13 | RAD ---
HISTORYIncreasing dyspnea, declining O2 satsSTUDYChest AP [id number]/09/2022FINDINGSThe heart remains enlarged. No definite congestive heart failure is noted. Severe diffuse bilateral interstitial, ground-glass, and alveolar infiltrates are present not significantly changed from the prior examination. A left pleural effusion appears to be present. A small right pleural effusion may also be present. No pneumothorax is identified. Bony thorax is unremarkable.IMPRESSIONNo change cardiomegalyNo change diffuse severe bilateral interstitial, ground-glass, and alveolar infiltratesBilateral small pleural effusions likely present left greater than rightElectronically signed by: GABY JASSO (Jun 27, 2021 14:12:06)
[2021-06-27] MEDS: Atrovent NEB TX 0.02% NEB PRN (19:31)
[2021-06-27] MEDS: RESTORIL CAP 15 MG PO PRN (22:07)
[2021-06-27] MEDS: COLACE CAP 100 MG PO SCH (22:08)
[2021-06-27] MEDS: MIRALAX POWDER (1 DOSE 17 G) PO SCH (23:35)
[2021-06-28] MEDS: MORPHINE SULFATE INJ 2 MG INJ IVP PRN ×4 (00:14→06:58)
[2021-06-28] MEDS: VORICONAZOLE 400 MG in NS 100 ML IV 100 ML IV SCH ×2 (00:14→12:20)
[2021-06-28] MEDS: SOLU-Medrol 40 MG VIAL IVP SCH ×4 (00:15→22:58)
[2021-06-28] MEDS: NS 1,000 ML IV 1,000 ML IV SCH ×3 (04:07→16:02)
[2021-06-28] MEDS: XOPENEX 1.25 MG/3 ML NEBULE NEB SCH ×4 (05:06→17:40)
[2021-06-28] MEDS: Atrovent NEB TX 0.02% NEB SCH ×4 (05:08→17:40)
--- NOTE | 2021-06-28 05:50 | RAD ---
PROCEDURE: Chest X-ray 1 View .HISTORY: FUNGAL PNEUMONIA .TECHNIQUE: AP view .COMPARISON: 06/27/2021.TECHNICAL QUALITY: Satisfactory .FINDINGS:Unchanged start size upper limits of normal.Central vascularity is mildly increased and unchanged.Consolidation throughout both lung chandler could be related to edema or pneumonia. Bilateral pleural effusions are unchanged. No pneumothorax.IMPRESSION:Findings suspicious for congestive failure. Chest is unchanged from previous study.Electronically signed by: Brody Cheng (Jun 28, 2021 05:48:31)
[2021-06-28] MEDS ORDERED: LASIX IVP STA (06:36)
[2021-06-28] MEDS: ZOSYN VIAL 3.375 GRAMS 3.375 G in NS 100 ML IV 100 ML IV SCH ×3 (06:40→22:07)
[2021-06-28 07:15] LABS: BASOPHILS % (AUTO) 0.1 % (0.2-1.0); HEMATOCRIT 29.7 % (42.0-54.0); HEMOGLOBIN 9.9 g/dL (13.5-18.0); LYMPHOCYTES # (AUTO) 0.1 X10^3/uL (1.3-2.9); LYMPHOCYTES % (AUTO) 0.9 % (21.0-51.0); MEAN CORPUSCULAR HGB CONC 33.3 g/dL (33.0-35.0); MEAN CORPUSCULAR VOLUME 93.2 fL (80.0-100.0); MEAN PLATELET VOLUME 8.3 fL (7.4-11.0); MONOCYTES # (AUTO) 0.4 x10^3/uL (0.3-0.8); MONOCYTES % (AUTO) 2.8 % (0.0-13.0); NEUTROPHILS # (AUTO) 13.7 x10^3/uL (2.2-4.8); NEUTROPHILS % (AUTO) 96.2 % (42.0-75.0); RED BLOOD COUNT 3.19 X10^6/uL (4.7-6.0); RED CELL DISTRIBUTION WIDTH 18.7 % (11.6-16.5); WHITE BLOOD COUNT 14.2 X10^3/uL (3.6-10.0)
[2021-06-28 07:24] LABS: ALANINE AMINOTRANSFERASE 31 Units/L (12-78); ALBUMIN 2.9 g/dL (3.4-5.0); ALKALINE PHOSPHATASE 179 Units/L (46-116); ASPARTATE AMINO TRANSFERASE 23 Units/L (15-37); BLOOD UREA NITROGEN 36 mg/dL (7-18); CALCIUM 8.2 mg/dL (8.5-10.1); CARBON DIOXIDE 39.7 mmol/L (21-32); CHLORIDE 105 mmol/L (98-107); COR CA(FOR HYPOALB) 9.1 mg/dL (8.5-10.1); COR NA(FOR HYPERGLY) 148 mmol/L (136-145); CREATININE 0.76 mg/dL (0.70-1.30); SODIUM 146 mmol/L (136-145); TOTAL PROTEIN 5.4 g/dL (6.4-8.2); eGFR NON BLACK RACES > 60 (>60)
[2021-06-28] MEDS: Atrovent NEB TX 0.02% NEB PRN ×2 (07:25→19:36)
[2021-06-28 07:31] LABS: BAND NEUTROPHILS % 2 % (0-10)
[2021-06-28 07:32] LABS: ANISOCYTOSIS SLIGHT; PLATELET MORPHOLOGY COMMENT NORMAL (NORMAL)
[2021-06-28] MEDS: ALBUMIN HUMAN 25%- 100 ML 100 ML IV SCH (08:36)
[2021-06-28] MEDS: CYTOTEC PO SCH ×2 (08:46→22:06)
[2021-06-28] MEDS: ZYVOX 600MG IV 600 MG/300 ML BAG IV SCH ×2 (08:46→22:07)
[2021-06-28] MEDS: ELIQUIS PO SCH ×2 (08:46→22:06)
[2021-06-28] MEDS: FLOMAX PO SCH ×2 (08:46→22:06)
[2021-06-28] MEDS: VIBRAMYCIN 100 MG in D5W 250 ML IV 250 ML IV SCH ×2 (08:46→22:07)
[2021-06-28] MEDS: MORPHINE SULFATE INJ 4 MG IVP PRN ×8 (09:00→23:33)
[2021-06-28] MEDS: ERAXIS 100 MG in NS 100 ML IV 100 ML IV SCH (09:25)
[2021-06-28] MEDS: COLACE CAP 100 MG PO SCH (22:06)
[2021-06-28] MEDS: MIRALAX POWDER (1 DOSE 17 G) PO SCH (22:06)
[2021-06-29] MEDS: MORPHINE SULFATE INJ 4 MG IVP PRN ×4 (01:00→10:00)
[2021-06-29] MEDS: VORICONAZOLE 400 MG in NS 100 ML IV 100 ML IV SCH ×2 (01:25→11:30)
[2021-06-29] MEDS: NS 1,000 ML IV 1,000 ML IV SCH ×2 (05:10→19:56)
[2021-06-29] MEDS: ZOSYN VIAL 3.375 GRAMS 3.375 G in NS 100 ML IV 100 ML IV SCH ×3 (05:10→21:32)
--- NOTE | 2021-06-29 06:36 | RAD ---
HISTORYCHF VS. PNEUMONIASTUDYCHEST, 1 [id number]/11/2022FINDINGSLINES AND TUBES: NoneHEART/ PULMONARY VASCULATURE: UnchangedLUNGS/ PLEURA: Diffuse pulmonary airspace opacities are unchanged. The small left and possibly trace right pleural effusions, unchanged. No pneumothoraxIMPRESSIONNo significant interval change.Electronically signed by: Ant Velez (Jun 29, 2021 06:35:28)
[2021-06-29 06:40] LABS: BASOPHILS % (AUTO) 0.1 % (0.2-1.0); HEMATOCRIT 28.8 % (42.0-54.0); HEMOGLOBIN 9.5 g/dL (13.5-18.0); LYMPHOCYTES # (AUTO) 0.1 X10^3/uL (1.3-2.9); LYMPHOCYTES % (AUTO) 0.8 % (21.0-51.0); MEAN CORPUSCULAR HEMOGLOBIN 31.5 pg (27.0-34.0); MEAN CORPUSCULAR HGB CONC 33.2 g/dL (33.0-35.0); MEAN CORPUSCULAR VOLUME 94.9 fL (80.0-100.0); MEAN PLATELET VOLUME 9.2 fL (7.4-11.0); MONOCYTES # (AUTO) 0.5 x10^3/uL (0.3-0.8); MONOCYTES % (AUTO) 3.4 % (0.0-13.0); NEUTROPHILS # (AUTO) 15.3 x10^3/uL (2.2-4.8); NEUTROPHILS % (AUTO) 95.7 % (42.0-75.0); RED BLOOD COUNT 3.03 X10^6/uL (4.7-6.0); RED CELL DISTRIBUTION WIDTH 18.9 % (11.6-16.5)
[2021-06-29] MEDS: XOPENEX 1.25 MG/3 ML NEBULE NEB SCH ×2 (06:46)
[2021-06-29] MEDS: Atrovent NEB TX 0.02% NEB SCH ×2 (06:46)
[2021-06-29 06:54] LABS: ALANINE AMINOTRANSFERASE 381 Units/L (12-78); ALKALINE PHOSPHATASE 151 Units/L (46-116); ASPARTATE AMINO TRANSFERASE 222 Units/L (15-37); BLOOD UREA NITROGEN 49 mg/dL (7-18); CALCIUM 8.5 mg/dL (8.5-10.1); CHLORIDE 106 mmol/L (98-107); COR CA(FOR HYPOALB) 9.3 mg/dL (8.5-10.1); COR NA(FOR HYPERGLY) 152 mmol/L (136-145); CREATININE 0.99 mg/dL (0.70-1.30); SODIUM 149 mmol/L (136-145); TOTAL PROTEIN 5.4 g/dL (6.4-8.2); eGFR NON BLACK RACES > 60 (>60)
[2021-06-29 06:58] LABS: CARBON DIOXIDE 41.4 mmol/L (21-32)
[2021-06-29 07:51] LABS: BAND NEUTROPHILS % 2 % (0-10); PLATELET MORPHOLOGY COMMENT NORMAL (NORMAL)
[2021-06-29 07:52] LABS: ANISOCYTOSIS SLIGHT
[2021-06-29] MEDS: SOLU-Medrol 40 MG VIAL IVP SCH ×2 (09:20→14:26)
[2021-06-29] MEDS: FLOMAX PO SCH ×2 (09:21→21:31)
[2021-06-29] MEDS: ELIQUIS PO SCH ×2 (09:21→21:30)
[2021-06-29] MEDS: CYTOTEC PO SCH ×2 (09:21→21:30)
[2021-06-29] MEDS: ALBUMIN HUMAN 25%- 100 ML 100 ML IV SCH (09:22)
[2021-06-29] MEDS: VIBRAMYCIN 100 MG in D5W 250 ML IV 250 ML IV SCH ×2 (09:22→21:31)
[2021-06-29] MEDS: ZYVOX 600MG IV 600 MG/300 ML BAG IV SCH ×2 (09:22→21:31)
[2021-06-29] MEDS: ERAXIS 100 MG in NS 100 ML IV 100 ML IV SCH (09:22)
[2021-06-29] MEDS ORDERED: ATIVAN INJ 2 MG VIAL IVP ONE (09:44)
[2021-06-29] MEDS ORDERED: MORPHINE SULFATE INJ 4 MG IVP ONE (09:45)
[2021-06-29] MEDS ORDERED: BUTT CREAM (COMPOUND) ONE (10:19)
--- NOTE | 2021-06-29 10:31 | PCM.PROG ---
Progress Note Progress Note for Day of Date of Exam: 06/29/21 Subjective Subjective: PT IS A 81 YEAR OLD MALE ADMITTED FOR TREATMENT OF PAROXYSMAL SVT, PNEUMONIA, COPD EXACERBATION, DEHYDRATION, HYPOTENSION. THIS MORNING HE IS BREATHING STATUS HAS WORSENED. HE IS CURRENTLY ON BIPAP WITH FIO2 AT 100% WITH OXYGEN SATURATIONS DIPPING DOWN INTO THE 60S. LABS/IMAGING: Wbc 16, Hgb 9.5, Plt 64, Na 149, K 4.4, Creatinine 0.99, Glucose 217, AST 222, ALT 381, ALKP 151, CRP 31, CXR was obtained that revealed: Diffuse pulmonary airspace opacities are unchanged. The small left and possibly trace right pleural effusions, unchanged. No pneumothorax. 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 He is also receiving IV Solumedrol 80mg q8h. At this time patient's prognosis is poor. The patient is a do not intubate patient and the family is content with his current situation as it exists and does not wish for him to be intubated. Currently he is receiving small doses of morphine to help with anxiety and breathlessness and this seems to be just right and is not too sedating but, it is alleviating the discomfort of dyspnea and our methods of oxygen delivery. Otherwise will continue with current treatment plan. Continue to closely monitor. TIME SPENT ON CLINICAL ASSESSMENT, REVIEWING LABS AND IMAGING, DECISION MAKING, AND DOCUMENTATION GREATER THAN 45 MINUTES. Past Medical Family Social History Past Med/Fam/Surg Hx: No changes since H&P Allergies: Allergies Latex, Natural Rubber Allergy (Unknown, Verified 10/20/17 20:02) Review of Systems ROS: No change since H&P Vital Signs and I&O's Vital Signs: Temperature 99.0 F Pulse Rate [Right Brachial] 100 Pulse Rate 100 Respiratory Rate 25 Blood Pressure [Right Arm] 122/60 Blood Pressure [Left Arm] 149/70 Blood Pressure 101/53 O2 Sat by Pulse Oximetry 68 Intake and Output: Intake & Output 06/26/21 06/27/21 06/28/21 06/29/21 23:59 23:59 23:59 23:59 Intake Total 2571 / 2571 505 / 505 2252 / 2252 120 / 120 Output Total 725 / 725 Balance 1846 / 1846 505 / 505 2252 / 2252 120 / 120 Physical Exam Oriented: Other (on BiPAP) Eyes: Normal Ear: Normal Nose: Normal Throat: Normal Respiratory: Generalized, Diminished and Wheezes Cardiovascular: Normal : Normal Auscultation: Bowel Sounds: Normal Tenderness: Normal Skin: Normal Musculoskeletal: Normal Mood Description: Anxious Speech Pattern: Unclear Laboratory and Diagnostics Result Diagrams: 06/29/21 05:37 06/29/21 05:37 Labs: 06/20/21 10:26 Sputum - Expectorated Sputum Sputum Culture - Final 06/20/21 10:26 Sputum - Expectorated Sputum - Final 06/14/21 19:01 Blood Blood Culture - Final 06/14/21 18:44 Blood Blood Culture - Final Laboratory WBC 16.0 X10^3/uL (3.6-10.0) H 06/29/21 05:37 RBC 3.03 X10^6/uL (4.7-6.0) L 06/29/21 05:37 Hgb 9.5 g/dL (13.5-18.0) L 06/29/21 05:37 Hct 28.8 % (42.0-54.0) L 06/29/21 05:37 MCV 94.9 fL (80.0-100.0) 06/29/21 05:37 MCH 31.5 pg (27.0-34.0) 06/29/21 05:37 MCHC 33.2 g/dL (33.0-35.0) 06/29/21 05:37 RDW 18.9 % (11.6-16.5) H 06/29/21 05:37 Plt Count 64 X10^3/uL (150.0-450.0) L 06/29/21 05:37 Plt Count Comment Decreased (ADEQUATE) 06/29/21 05:37 MPV 9.2 fL (7.4-11.0) 06/29/21 05:37 Neut % (Auto) 95.7 % (42.0-75.0) H 06/29/21 05:37 Lymph % (Auto) 0.8 % (21.0-51.0) L 06/29/21 05:37 [place] % (Auto) 3.4 % (0.0-13.0) 06/29/21 05:37 Eos % (Auto) 0.0 % (0.9-2.9) L 06/29/21 05:37 Baso % (Auto) 0.1 % (0.2-1.0) L 06/29/21 05:37 Neut # (Auto) 15.3 x10^3/uL (2.2-4.8) H 06/29/21 05:37 Lymph # (Auto) 0.1 X10^3/uL (1.3-2.9) L 06/29/21 05:37 [place] # (Auto) 0.5 x10^3/uL (0.3-0.8) 06/29/21 05:37 Eos # (Auto) 0.0 x10^3/uL (0.0-0.2) 06/29/21 05:37 Baso # (Auto) 0.0 X10^3/uL (0.0-0.1) 06/29/21 05:37 Absolute Nucleated RBC 0.1 /100WBC 06/29/21 05:37 Total Counted 100 06/29/21 05:37 Neutrophils % (Manual) 92 % (39-76) H 06/29/21 05:37 Band Neutrophils % 2 % (0-10) 06/29/21 05:37 Lymphocytes % (Manual) 2 % (13-43) L 06/29/21 05:37 Monocytes % (Manual) 4 % (4-9) 06/29/21 05:37 Eosinophils % (Manual) 2 % (0-6) 06/20/21 06:15 Metamyelocytes % 1 06/16/21 05:37 Plt Morphology Comment Normal (NORMAL) 06/29/21 05:37 RBC Morphology Abnormal (NORMAL) 06/29/21 05:37 Anisocytosis Slight A 06/29/21 05:37 Schistocytes Present 06/25/21 05:00 PT 13.2 SECONDS (11.8-14.3) 06/14/21 10:45 INR Target Range - 06/14/21 10:45 INR 1.05 (0.8-1.3) 06/14/21 10:45 APTT 28.0 SECONDS (22.9-36.5) 06/14/21 10:45 PTT Comment - 06/14/21 10:45 D-Dimer 0.85 ug/ml (0.0-0.57) H* 06/14/21 11:02 Sample Site Rr 06/16/21 08:46 ABG pH 7.450 (7.35-7.45) 06/16/21 08:46 ABG pCO2 42.0 mmHg (35.0-45.0) 06/16/21 08:46 ABG pO2 70.0 mmHg (80.0-100.0) L 06/16/21 08:46 ABG HCO3 29.2 mmol/L (22-26) H 06/16/21 08:46 ABG O2 Saturation 95.0 % (90-100) 06/16/21 08:46 ABG Base Excess 4.7 mmol/L (-2.0-2.0) H 06/16/21 08:46 Hossein Test Pos 06/16/21 08:46 A-a Gradient 498.0 mmHg 06/16/21 08:46 FiO2 87.0 06/16/21 08:46 Blood Gas Comments Pt [email or web address] 06/16/21 08:46 Sodium 149 mmol/L (136-145) H 06/29/21 05:37 Corrected Sodium 152 mmol/L (136-145) H 06/29/21 05:37 Potassium 4.4 mmol/L (3.5-5.1) 06/29/21 05:37 Chloride 106 mmol/L (98-107) 06/29/21 05:37 Carbon Dioxide 41.4 mmol/L (21-32) H* 06/29/21 05:37 BUN 49 mg/dL (7-18) H 06/29/21 05:37 Creatinine 0.99 mg/dL (0.70-1.30) 06/29/21 05:37 Est GFR (MDRD) Af Amer > 60 (>60) 06/29/21 05:37 Est GFR (MDRD) Non-Af > 60 (>60) 06/29/21 05:37 Glucose 217 mg/dL (65-99) H 06/29/21 05:37 Calcium 8.5 mg/dL (8.5-10.1) 06/29/21 05:37 Corrected Calcium 9.3 mg/dL (8.5-10.1) 06/29/21 05:37 Magnesium 2.3 mg/dL (1.7-2.9) 06/21/21 05:45 Total Bilirubin 0.80 mg/dL (0.2-1.0) 06/29/21 05:37 AST 222 Units/L (15-37) H 06/29/21 05:37 ALT 381 Units/L (12-78) H 06/29/21 05:37 Alkaline Phosphatase 151 Units/L (46-116) H 06/29/21 05:37 Creatine Kinase 36 Units/L (39-308) L 06/14/21 10:45 CK-MB (CK-2) 1.2 ng/mL (0-4.0) 06/14/21 10:45 CK/CKMB % Calc 3.3 % (<4) 06/14/21 10:45 Troponin I High Sens 48.9 ng/L (4.0-60.0) 06/14/21 10:45 C-Reactive Protein 31.70 mg/L (0-3.0) H 06/29/21 05:37 B-Natriuretic Peptide 44.1 pg/mL (0-79) 06/14/21 10:45 Total Protein 5.4 g/dL (6.4-8.2) L 06/29/21 05:37 Albumin 3.0 g/dL (3.4-5.0) L 06/29/21 05:37 Globulin 2.4 g/dL (2.5-4.5) L 06/29/21 05:37 Albumin/Globulin Ratio 1.3 Ratio (1.1-2.1) 06/29/21 05:37 Specimen Type Clean catch urine 06/14/21 13:20 Urine Color Yellow (YELLOW) 06/14/21 13:20 Urine Appearance Clear (CLEAR) 06/14/21 13:20 Urine pH 7.0 (5.0 - 8.0) 06/14/21 13:20 Ur Specific [place] 1.015 (1.000-1.030) 06/14/21 13:20 Urine Protein 1+ (NEGATIVE) 06/14/21 13:20 Urine Glucose (UA) Negative (NEGATIVE) 06/14/21 13:20 Urine Ketones Negative (NEGATIVE) 06/14/21 13:20 Urine Occult Blood Negative (NEGATIVE) 06/14/21 13:20 Urine Nitrite Negative (NEGATIVE) 06/14/21 13:20 Urine Bilirubin Negative (NEGATIVE) 06/14/21 13:20 Urine Urobilinogen 1+ (NORMAL) 06/14/21 13:20 Ur Leukocyte Esterase 1+ (NEGATIVE) 06/14/21 13:20 Urine RBC None seen /HPF (0-3) 06/14/21 13:20 Urine WBC 0-2 /HPF (0-5) 06/14/21 13:20 Ur Squamous Epith Cells Rare /HPF (NEGATIVE) 06/14/21 13:20 Urine Bacteria Negative /HPF (NEGATIVE) 06/14/21 13:20 Ur Culture Indicated? No/not indicated 06/14/21 13:20 SARS-CoV-2 (PCR) Negative (NEGATIVE) 06/14/21 15:17 Influenza Type A (PCR) Negative (NEGATIVE) 06/14/21 15:17 Influenza Type B (PCR) Negative (NEGATIVE) 06/14/21 15:17 RSV (PCR) Negative (NEGATIVE) 06/14/21 15:17 Resp Viral Panel (PCR) See scanned report 06/20/21 15:30 Special/Misc Test See scanned report 06/20/21 10:26 Plan (1) Pneumonia due to COVID-19 virus: Status: Resolved Plan: SUPPLEMENTAL OXYGEN, NORMAL SALINE AT 125 ML/HR, LEVAQUIN 500MG IV DAILY, PROVENTIL NEBS Q4H, PULMICORT NEBS BID, SOLU-MEDROL 80MG IV Q8H, CYTOTEC 100MCG PO TID, FLOMAX 0.4MG PO HS, AND RESTORIL 15MG PO HS PRN (2) COPD (chronic obstructive pulmonary disease): Status: Chronic Qualifiers: COPD type: COPD with acute exacerbation Qualified Code(s): J44.1 - Chronic obstructive pulmonary disease with (acute) exacerbation (3) Paroxysmal supraventricular tachycardia: Status: Acute Plan: ADMIT, SUPPLEMENTAL OXYGEN, NORMAL SALINE AT 125 ML/HR, LEVAQUIN 500MG IV DAILY, PROVENTIL NEBS Q4H, PULMICORT NEBS BID, SOLU-MEDROL 80MG IV Q8H, CYTOTEC 100MCG PO TID, FLOMAX 0.4MG PO HS, AND RESTORIL 15MG PO HS PRN (4) Dehydration: Status: Acute (5) Hypotension: Status: Acute Qualifiers: Hypotension type: unspecified hypotension type Qualified Code(s): I95.9 - Hypotension, unspecified
[2021-06-29] MEDS ORDERED: BUTT CREAM (COMPOUND) TOP PRN (10:36)
[2021-06-29 11:02] LABS: BILIRUBIN,URINE NEGATIVE (NEGATIVE); BLOOD/HEMOGLOBIN,URINE 1+ (NEGATIVE); GLUCOSE, URINE NEGATIVE (NEGATIVE); KETONES,URINE NEGATIVE (NEGATIVE); LEUKOCYTE ESTERASE ,URINE NEGATIVE (NEGATIVE); NITRITES,URINE NEGATIVE (NEGATIVE); PROTEIN,URINE 1+ (NEGATIVE); UROBILINOGEN,URINE NORMAL (NORMAL)
[2021-06-29 11:16] LABS: APPEARANCE,URINE CLEAR (CLEAR); COLOR,URINE PALE YELLOW (YELLOW)
[2021-06-29 11:17] LABS: BACTERIA,URINE TRACE /HPF (NEGATIVE); RBC,URINE 0-2 /HPF (0-3); SQUAMOUS EPITHELIAL CELL,UR RARE /HPF (NEGATIVE)
[2021-06-29] MEDS ORDERED: NS 1,000 ML IV 1,000 ML IV ONE (19:42)
[2021-06-29 20:25] VITALS: BP 69/43
[2021-06-29] MEDS: COLACE CAP 100 MG PO SCH (21:30)
[2021-06-29] MEDS: MIRALAX POWDER (1 DOSE 17 G) PO SCH (21:31)
[2021-06-29] MEDS ORDERED: MORPHINE SULFATE INJ 4 MG ONE (21:56)
[2021-06-29] MEDS ORDERED: ATIVAN INJ 2 MG VIAL ONE (21:56)
--- NOTE | 2021-07-05 13:06 | DR.DECEASE ---
FORM Date of Admission Date of Admission: 06/14/21 Admission Diagnosis Current Active Problems Problem Status Onset Paroxysmal supraventricular tachycardia Dehydration Hypotension COPD (chronic obstructive pulmonary disease) Discharge Diagnosis (1) Pneumonia due to COVID-19 virus: Problems (Updated 06/25/21 @ 11:50 by Gloria Robledo) Paroxysmal supraventricular tachycardia (Acute) I47.1 Dehydration (Acute) E86.0 Hypotension (Acute) I95.9 COPD (chronic obstructive pulmonary disease) (Chronic) J44.9 Hypertension (Chronic) I10 (2) COPD (chronic obstructive pulmonary disease): Problems (Updated 06/25/21 @ 11:50 by Gloria Robledo) Paroxysmal supraventricular tachycardia (Acute) I47.1 Dehydration (Acute) E86.0 Hypotension (Acute) I95.9 COPD (chronic obstructive pulmonary disease) (Chronic) J44.9 Hypertension (Chronic) I10 (3) Paroxysmal supraventricular tachycardia: Problems (Updated 06/25/21 @ 11:50 by Gloria Robledo) Paroxysmal supraventricular tachycardia (Acute) I47.1 Dehydration (Acute) E86.0 Hypotension (Acute) I95.9 COPD (chronic obstructive pulmonary disease) (Chronic) J44.9 Hypertension (Chronic) I10 (4) Dehydration: Problems (Updated 06/25/21 @ 11:50 by Gloria Robledo) Paroxysmal supraventricular tachycardia (Acute) I47.1 Dehydration (Acute) E86.0 Hypotension (Acute) I95.9 COPD (chronic obstructive pulmonary disease) (Chronic) J44.9 Hypertension (Chronic) I10 (5) Hypotension: Problems (Updated 06/25/21 @ 11:50 by Gloria Robledo) Paroxysmal supraventricular tachycardia (Acute) I47.1 Dehydration (Acute) E86.0 Hypotension (Acute) I95.9 COPD (chronic obstructive pulmonary disease) (Chronic) J44.9 Hypertension (Chronic) I10 Labs Result Diagrams: 06/29/21 05:37 06/29/21 05:37 Home Medications Home Medications Medication Instructions Recorded Type dexamethasone 2 mg PO DAILY 06/14/21 History tamsulosin 0.4 mg PO HS 06/14/21 History Expiration Expiration Date: 06/29/21 Expiration Time: 22:25 Pronounced by: Chika Catalan Preliminary Cause of : Cardiopulmonary Arrest
== END 2021-06-29 22:15 | disposition expired | DRG 308 ==
LOC: ER 10:22 → MED/SURG 10:22 → OBSVTOIN 15:33 → MED/SURG 16:38
PROVIDERS: ADMIT Internal Medicine; ATTEND Obstetrics & Gynecology Obstetrics
DX: I47.1 Supraventricular tachycardia; J44.1 Chronic obstructive pulmonary disease with (acute) exacerbation; R94.31 Abnormal electrocardiogram [ECG] [EKG]; Z20.822 Contact with and (suspected) exposure to COVID-19; E86.0 Dehydration; I46.9 Cardiac arrest, cause unspecified; E27.40 Unspecified adrenocortical insufficiency; R06.03 Acute respiratory distress; I95.89 Other hypotension; E66.9 Obesity, unspecified; Z99.81 Dependence on supplemental oxygen; R79.82 Elevated C-reactive protein (CRP); J12.82 Pneumonia due to coronavirus disease 2019; Z86.16 Personal history of COVID-19